=== PATIENT | female | born 1960 | race Caucasian/White ===

== ENCOUNTER 2021-07-25 17:07 | Observation (INO) | payer MEDICAID, SELFPAY ==
[2021-07-25 17:17] VITALS: BP 112/66; PULSE 53; RESP 17; O2SAT 95; BMI 36.8
[2021-07-25 20:00] VITALS: BP 141/75; PULSE 60; PULSE 61; RESP 20; TEMP 36.9; O2SAT 95
--- NOTE | 2021-07-25 20:40 | HMH.HP ---
*Admission Date: 07/25/21 *Chief complaint: chest pain *History of present illness: this patient presented to [facility] and had angina and abn card enz and transferred to [facility] for card eval and treatment [facility] History I have reviewed the patient's past medical history: Yes Medical History: Reports:: Hypertension Denies:: Diabetes Mellitus Type 1, Diabetes Mellitus Type 2 *Have you ever received a pneumonia vaccine?: Yes *Have you received a flu vaccine this season?: No Other Medical History: Reports: Arthritis, Fibromyalgia Laterality Cases: Bilateral: Breast Biopsy - *Social History Smoking Status: Former smoker Alcohol Intake: current Alcohol Intake Frequency:: holidays/special occasions only *Occupational Status:: disabled Housing: house Household Members: significant other *Travel in the last 8 weeks: Outside the [facility] Family Hx:: Coronary Artery Disease Review of Systems - Review of Systems Review of systems:: pertinent systems reviewed and negative unless documented below - Constitutional Denies fever(s) - Eyes Denies loss of vision - ENT Denies dizziness - *Cardiovascular Reports chest pain at rest, Reports shortness of breath, Reports radiating jaw, neck or arm pain - *Respiratory Denies cough - *Gastrointestinal Denies abdominal pain - *Musculoskeletal Denies joint pain - Integumentary/Breasts Denies rash - *Neurologic Denies seizure-like activity - Psychiatric Denies anxiety Meds Home Medications Medication Instructions Recorded Confirmed Type Baclofen [Lioresal 10mg tablet] 10 mg PO BID 07/25/21 07/25/21 History Duloxetine HCl 60 mg PO DAILY 07/25/21 07/25/21 History OXcarbazepine [Oxcarbazepine] 600 mg PO TID 07/25/21 07/25/21 History Topiramate [Topamax] 50 mg PO BID 07/25/21 07/25/21 History LORazepam [Ativan 1mg tablet] 1 mg PO TID PRN 07/26/21 07/26/21 History Allergies Allergy/AdvReac Type Severity Reaction Status Date / Time bee venom protein (honey bee) Allergy Verified 07/25/21 17:27 Penicillins Allergy Verified 07/25/21 17:27 Exam Vital signs and Labs for Last 24 Hours: Temp Pulse Resp BP Pulse Ox 98.4 F 61 20 141/75 H 95 07/25/21 20:00 07/25/21 20:00 07/25/21 20:00 07/25/21 20:00 07/25/21 20:00 I & O for Last 24 hours: Intake & Output 07/23/21 07/24/21 07/25/21 07/26/21 11:59 11:59 11:59 11:59 Intake Total 240 / 240 Balance 240 / 240 Weight 242 lb 7 oz - Constitutional no acute distress, obese - *Routine HEENT Exam Head: Present: normocephalic Eye: Present: EOMI, PERRL ENT: Present: mucous membranes dry - *Routine Neck Exam Absent: JVD - *Routine Respiratory Exam Present: decreased breath sounds - *Routine Cardiovascular Exam Present: RRR, murmur, S4 - *Routine Abdominal Exam Present: soft - *Routine Rectal Exam Rectal:: deferred - *Routine Genitalia Exam Genitalia:: deferred - *Routine Extremities Exam Absent: calf tenderness - *Routine Skin Exam Present: intact - *Routine Neurological Exam Present: alert, CN II-XII intact - Routine Psychiatric Exam Present: cooperative Assessment and Plan (1) Obesity (BMI 30-39.9) Status: Acute Category: Medical Code(s): E66.9 - Obesity, unspecified (2) NSTEMI (non-ST elevated myocardial infarction) Status: Acute Category: Medical Code(s): I21.4 - Non-ST elevation (NSTEMI) myocardial infarction (3) Unstable angina Status: Acute Category: Medical Code(s): I20.0 - Unstable angina (4) HTN (hypertension) Status: Acute Category: Medical Code(s): I10 - Essential (primary) hypertension
--- NOTE | 2021-07-25 20:41 | XR_ITS ---
PROCEDURE INFORMATION: Exam: XR Chest Exam date and time: 07/25/2021 9:02 PM Age: 60 years old Clinical indication: Sternal or substernal pain; Additional info: Chest pain TECHNIQUE: Imaging protocol: XR of the chest. Views: 1 view. COMPARISON: No relevant prior studies available. FINDINGS: Lungs: Unremarkable. No consolidation. Pleural spaces: Unremarkable. No pleural effusion. No pneumothorax. Heart/Mediastinum: Unremarkable. No cardiomegaly. Bones/joints: Unremarkable. IMPRESSION: No acute cardiopulmonary abnormality.
[2021-07-25 21:44] LABS: Chloride 109 mmol/L (98-107); Potassium 3.7 mmoL/L (3.5-5.1); Sodium 140 mmol/L (136-145)
[2021-07-25 21:47] LABS: Alanine Aminotransferase 23 U/L (12-78); Albumin Level 4.1 g/dl (3.5-5.0); Albumin/Globulin Ratio 1.4 (1.1-1.8); Alkaline Phosphatase 109 U/L (38-126); Anion Gap 9.7 mEq/L (5-15); Aspartate Amino Transferase 34 U/L (14-36); Bilirubin,Total 0.3 mg/dl (0.2-1.3); Blood Urea Nitrogen 16 mg/dl (7-17); Calcium 9.3 mg/dl (8.4-10.2); Carbon Dioxide 25 mmol/L (22.0-30.0); Cholesterol 225 mg/dl (140-200); Creatinine Clearance Estimated 152 mL/min (50-200); Estimated Glomerular Filt Rate 86 ml/min (>60); GFR (African American) 104 ML/MIN (>60); Glucose 113 mg/dl (74-100); Total Protein,Serum 7.1 g/dl (6.3-8.2); Triglycerides 115 mg/dl (30-150); VLDL Cholesterol 23 mg/dL (0-40)
[2021-07-25 21:48] LABS: Chol/HDL Ratio 3.5 (1-3.5); HDL Cholesterol 65 mg/dl (40-60)
[2021-07-25 21:59] LABS: Direct LDL Cholesterol 99.33 mg/dL (100-129)
[2021-07-25 22:12] LABS: Basophils # 0.1 K/mm3 (0-0.2); Basophils % 1.4 % (0.1-2.0); Eosinophils # 0.1 K/mm3 (0.0-0.4); Eosinophils % 1.3 % (0.1-12.0); Hematocrit 38.2 % (37.0-47.0); Hemoglobin 13.2 g/dL (12.2-16.2); Lymphocytes # 2.8 K/mm3 (0.7-4.5); Lymphocytes % 38.4 % (10-50); Mean Corpuscular HGB Conc 34.5 g/dL (31.8-35.4); Mean Corpuscular Hemoglobin 31.4 pg (27.0-31.2); Mean Corpuscular Volume 91.2 fl (81-99); Mean Platelet Volume 7.9 fl (7.4-10.4); Monocytes # 0.4 K/mm3 (0.1-1.0); Monocytes % 5.3 % (1.7-9.3); Neutrophils # 3.8 K/mm3 (1.8-7.8); Neutrophils % 53.5 % (37.0-80.0); Platelet Count 283 K/mm3 (142-424); Red Blood Count 4.19 M/mm3 (4.20-5.40); Red Cell Distribution Width 13.3 % (11.5-17.5); White Blood Count 7.2 K/mm3 (4.8-10.8)
[2021-07-26] VITALS (21 sets, daily range): BP systolic 95–148; BP diastolic 42–83; PULSE 51–77; RESP 16–20; TEMP 36.6–36.9; O2SAT 94–98; BMI 36.6
--- NOTE | 2021-07-26 | IR_ITS ---
APPROVED REPORT Patient Location: Inpatient Diabetes Trainer: ADRIAN Hazel RT (R) PROCEDURES Left heart catheterization Left ventriculogram Selective coronary angiogram Drug-eluting stent deployment to the ostial left main artery Intravascular ultrasound left main artery INDICATION Acute non-ST elevation myocardial infarction, Coronary artery disease Informed consent was obtained prior to the procedure. COMPLICATIONS None Estimated Blood Loss: Less than 10 mls TECHNIQUE One percent lidocaine used to anesthetize the right anterior aspect of the wrist. The right radial artery was accessed via the Seldinger technique. A 6 K[place] sheath was placed in the right radial artery. 2.5 mg of verapamil, 800 mcg of nitroglycerin, 1mg Lidocaine and 5000 U Heparin were given through the arterial sheath. The papa catheter was also used to perform left heart catheterization, left ventriculogram and selective coronary angiogram. At the end the diagnostic procedure therapeutic heparin. Following the heparin I broke scrub and then spoke to the patient's daughter and son about the options of bypass surgery versus stenting. I discussed with them the patient's low syntax score as well as the syntax trial data. After lengthy discussion it was decided the patient would most likely prefer stenting. Patient had already been loaded with Brilinta which would further delay bypass surgery by another 5 days. I did inform the family I felt this is a low risk procedure in my hands and felt that a successful outcome could be achieved. The daughter felt that her mother would like to proceed with stents therefore it was decided to percutaneous revascularize patient. The ACT was out of range. Patient was already loaded on 180 mg of Brilinta last evening. The guide catheter was placed in the left coronary cusp and the Choice PT extra-support wire was placed in the circumflex artery followed by a 4 mm x 8 mm resolute [place] stent deployed at 24 leon reducing the critical stenosis to 0%. Following this intravascular ultrasound probe was advanced and the vessel was interrogated. There was excellent stent expansion and sizing of the stent with excellent IVUS results. At the end of procedure the apparatus was removed the sheath was removed and hemostasis achieved and TR banding patient was transferred to the postop putting in stable condition. RAMON-3 flow was present before and after the procedure. ANGIOGRAPHIC RESULTS The left main artery Has an ostial 90% stenosis The left anterior descending artery Normal The circumflex artery Normal The right coronary artery Dominant normal The MARRERO ventriculogram reveals Ejection fraction 50% with hypokinetic anterior wall The left ventricular end-diastolic pressure 35 mmHg IMPRESSION Critical ostial left main artery disease Successful stent to the ostial left main artery critical disease reduced to 0% with 1 drug-eluting stent Regional wall motion abnormality with elevated LVEDP PLAN 1. Dual antiplatelet therapy 2. Beta-blockers ALYX inhibitor's 3. I believe patient's LVEDP will decrease now that the left main artery has been revascularized. The elevated LVEDP most likely stems from diastolic dysfunction secondary to ischemia as well as the regional wall motion abnormality 4. LDL less than 55 to be achieved with high intensity statin 5. Avoidance of tobacco products 6. Cardiac rehabilitation 7. Risk factor modification Electronically signed by : Dhaval Taveras MD 07/26/2021 13:05:22
--- NOTE | 2021-07-26 07:10 | HMH.PHAVTE ---
[facility] Pharmacy VTE Monitoring - Patient Demographics Admission date: 07/25/21 Report Date: 07/26/21 Time: 07:10 Allergies/Adverse Reactions: Patient Allergies bee venom protein (honey bee) Allergy (Verified 07/25/21 17:27) Penicillins Allergy (Verified 07/25/21 17:27) Height: 1.73 m Weight: 109.452 kg - VTE Risk Labs: VTE Related Lab Results Hgb 13.2 g/dL (12.2-16.2) 07/25/21 21:10 Hct 38.2 % (37.0-47.0) 07/25/21 21:10 Plt Count 283 K/mm3 (142-424) 07/25/21 21:10 BUN 16 mg/dl (7-17) 07/25/21 21:10 Creatinine 0.70 mg/dl (0.52-1.04) 07/25/21 21:10 Estimated Creat Clear 152 mL/min (50-200) 07/25/21 21:10 Was VTE Risk Assessment Performed: Yes VTE Score: 7 VTE Risk Level: Moderate Risk - Prophylaxis VTE Prophylaxis Ordered?: Yes Types of VTE Prophylaxis: TEDS Knee High Location of Applied Device: Bilateral Lower Extremeties
--- NOTE | 2021-07-26 08:00 | CA_ITS ---
APPROVED REPORT EXAM: Comprehensive 2D, Doppler, and color-flow Echocardiogram Sql Server Consultant: HUEY Zapata, RVS Ht: 5 ft 8 in Wt: 242lbs BSA: 2.22 BP: 130/90 mmHg Indications: NSTEMI, HTN 2D Dimensions LA Volume 58.40 mL LA Volume Index 26.30 mL/m2 (M/F) 16-34 M-Mode Dimensions TAPSE 2.29 (<1.7) LV Diastology E Decel Time 290.00 (160-240 msec) E/A Ratio 0.94 MED E' 7.70 (< 7 cm/sec) MED A' 9.70 cm/s E'/MED E' Ratio 10.48 (>14) LAT E' 9.40 (<10 cm/sec) LAT A' 8.30 cm/s E/LAT E' Ratio 8.59 (>14) Pulm Vein s 32.00 cm/sec Pulm Vein d 22.00 cm/sec Ar-A Duration 133.00 msec Aortic Valve LVOT Max 133.00 (70-110 cm/s) LVOT VTI 32.12 cm AoV Peak Alok. 169.00 (50-130 cm/s) AO Peak GR. 11.40 mmHg AO Mean GR. 5.70 (<5 mmHg) AO VTI 40.00 (18-25 cm) Mitral Valve MV A Velocity 85.00 (40-130 cm/s) E/A Ratio 0.94 MV Decel. Time 290.00 (160-240 ms) MV Mean Gr. 1.50 (<2mmHg) MV PHT 73.00 ms Tricuspid Valve TR P. Velocity 184.00 cm/s RAP Estimate 10.00 mmHg RVSP 23.50 mmHg Left Ventricle Left atrium is mildly enlarged, left ventricle is normal size, mild concentric left ventricular hypertrophy, estimated ejection fraction is 50%, there is moderate hypokinesis involving the distal septum and apical wall. Grade 1 diastolic dysfunction seen without tissue Doppler evidence of raise left atrial pressure. Right Ventricle Right atrium and right ventricle are normal size and contractility. Aortic Valve Aortic valve is minimally thickened and fibrosed, there is no aortic stenosis or aortic insufficiency. Mitral Valve Mitral valve has mitral annular calcification there is no mitral stenosis, there is trace mitral regurgitation. Tricuspid Valve Tricuspid valve is grossly normal, there is trace tricuspid regurgitation, tricuspid regurgitation jet velocity is inadequate for calculation of the right ventricular systolic pressure. Pulmonic Valve Pulmonic valve is poorly visualized. Great Vessels Aortic root is normal size. Inferior vena cava is poorly visualized. Pericardium No significant pericardial effusion noted. Conclusion 1. Mildly enlarged left atrium, normal left ventricular size, mild concentric left ventricular hypertrophy, estimated ejection fraction 50% with segmental wall motion abnormality described above, grade 1 diastolic dysfunction seen without tissue Doppler evidence of raise left atrial pressure. 2. Trace mitral and tricuspid regurgitation. 3. No significant pericardial effusion noted. 4. Inferior vena cava is poorly visualized Electronically signed by : Geoff Miller MD 07/27/2021 11:53:42
--- NOTE | 2021-07-26 08:30 | HMH.CNCARD ---
History of Present Illness Consult date: 07/26/21 Requesting physician: Marito Mccoy Consult reason: chest pain Chief complaint: chest pain Additional Medical History:: Fibromyalgia trigeminal neuralgia anxiety htn lupus former 1 ppd smoker, quit 8 months ago History of present illness: 60 year old female with past medical hx of fibromyalgia, tigeminal neuralgia, anxiety, htn, and lupus presented to [facility] ED yesterday with complaint of midsternal chest pressure associated with soa. patient reports she recently moved to from [place]. reports has had intermittent chest pressure x 6 weeks, becoming more freq and lasting longer, often present at rest. reports pain often awakes her at night. yesterday was going to [employer] with pain started and couldnt get out of car. went to ed. High sensitivity trops were elevated, EKG negative for stemi. chest xray and ct chest negative. patient was transferred to this facility for cardiology consult. [facility] History Medical History: Reports:: Hypertension Denies:: Diabetes Mellitus Type 1, Diabetes Mellitus Type 2 *Have you ever received a pneumonia vaccine?: Yes *Have you received a flu vaccine this season?: No Other Medical History: Reports: Arthritis, Fibromyalgia Laterality Cases: Bilateral: Breast Biopsy - *Social History Smoking Status: Former smoker Alcohol Intake: current Alcohol Intake Frequency:: holidays/special occasions only *Occupational Status:: disabled Housing: house Household Members: significant other *Travel in the last 8 weeks: Outside the [facility] Family Hx:: No significant family history Meds Home Medications Medication Instructions Recorded Confirmed Type Baclofen [Lioresal 10mg tablet] 10 mg PO BID 07/25/21 07/25/21 History Duloxetine HCl 60 mg PO DAILY 07/25/21 07/25/21 History OXcarbazepine [Oxcarbazepine] 600 mg PO TID 07/25/21 07/25/21 History Topiramate [Topamax] 50 mg PO BID 07/25/21 07/25/21 History LORazepam [Ativan 1mg tablet] 1 mg PO TID PRN 07/26/21 07/26/21 History Allergies Allergy/AdvReac Type Severity Reaction Status Date / Time bee venom protein (honey bee) Allergy Verified 07/25/21 17:27 Penicillins Allergy Verified 07/25/21 17:27 Exam Vital signs and Labs for Last 24 Hours: Temp Pulse Resp BP Pulse Ox 98.0 F 57 L 20 139/67 98 07/26/21 04:00 07/26/21 04:00 07/26/21 04:00 07/26/21 04:00 07/26/21 04:00 Laboratory Results - last 24 hr 07/25/21 21:10: WBC 7.2, RBC 4.19 L, Hgb 13.2, Hct 38.2, MCV 91.2, MCH 31.4 H, MCHC 34.5, RDW 13.3, Plt Count 283, MPV 7.9, Neut % (Auto) 53.5, Lymph % (Auto) 38.4, [place] % (Auto) 5.3, Eos % (Auto) 1.3, Baso % (Auto) 1.4, Neut # (Auto) 3.8, Lymph # (Auto) 2.8, [place] # (Auto) 0.4, Eos # (Auto) 0.1, Baso # (Auto) 0.1 07/25/21 21:10: Sodium 140, Potassium 3.7, Chloride 109 H, Carbon Dioxide 25, Anion Gap 9.7, BUN 16, Creatinine 0.70, Estimated Creat Clear 152, Estimated GFR 86, Est GFR ( Amer) 104, Glucose 113 H, Calcium 9.3, Magnesium 2.0, Total Bilirubin 0.3, AST 34, ALT 23, Alkaline Phosphatase 109, Total Protein 7.1, Albumin 4.1, Globulin 3.0, Albumin/Globulin Ratio 1.4, Triglycerides 115, Cholesterol 225 H, LDL Cholesterol Direct 99.33 L, VLDL Cholesterol 23, HDL Cholesterol 65 H, Cholesterol/HDL Ratio 3.5 I & O for Last 24 hours: Intake & Output 07/23/21 07/24/21 07/25/21 07/26/21 23:59 23:59 23:59 23:59 Intake Total 240 / 240 906 / 906 Balance 240 / 240 906 / 906 Weight 242 lb 7 oz 241 lb 4.8 oz Microbiology Reports for the Last 24 Hours: Microbiology 07/25/21 17:55 Nasopharyngeal Coronavirus COVID-19 PCR - Final - Constitutional no acute distress - *Routine Respiratory Exam Present: CTA bilaterally - *Routine Cardiovascular Exam Present: RRR - *Routine Extremities Exam Absent: cyanosis, clubbing, edema Review of Systems - *Cardiovascular Reports chest pain, Reports shortness of breath Assessment a
--- NOTE | 2021-07-26 09:39 | HMH.PHAINT ---
MEDICATION RECONCILIATION COMPLETED ON PATIENT USING LIST PROVIDED BY SPOUSE AND PATIENT INTERVIEW. PATIENT JUST MOVED TO [place] FROM [place]. -CARIDAD GRANADOD
--- NOTE | 2021-07-26 11:19 | PC.NURSE ---
VERIFIED W/FANY IN [employer] THAT IT IS OK TO GO AHEAD AND GIVE BENEDRYL, HE SAID YES, IT WAS OK AND THEY WOULD BE UP TO GET PATIENT SHORTLY
--- NOTE | 2021-07-26 11:25 | PC.NURSE ---
[facility] HERE TO TRANSPORT PATIENT TO [facility]
[2021-07-26 13:08] LABS: CATHL Activated Clotting Time > 400 SEC (74-125)
--- NOTE | 2021-07-26 13:16 | PC.NURSE ---
spoke with rhoda hoffman aprn about note stating she wanted patient to have valsartan 80mg po daily verified with her that this was something she wanted ordered. she stated she did want this given to patient so order sent to pharmacy. valsartan is not a form we have so irbesartan was used. (this was at 1111)
--- NOTE | 2021-07-26 13:40 | PC.NURSE ---
Pt just arrived back to the floor from [employer]
--- NOTE | 2021-07-26 15:55 | P.PN_ITS ---
Internal Medicine - PN: Subj *Date: 07/26/21 *Time: 08:55 Interval history: 60-year-old female patient sitting up in bed resting quietly she denies any chest pain or shortness of breath during the night. Daughter and boyfriend are at bedside. Patient to go down for left heart cath today she denies any questions regarding procedure. Exam Vital signs and Labs for Last 24 Hours: Temp Pulse Resp BP Pulse Ox 97.8 F 56 L 18 115/64 97 07/26/21 08:00 07/26/21 15:45 07/26/21 15:45 07/26/21 15:45 07/26/21 15:45 Laboratory Results - last 24 hr 07/25/21 21:10: WBC 7.2, RBC 4.19 L, Hgb 13.2, Hct 38.2, MCV 91.2, MCH 31.4 H, MCHC 34.5, RDW 13.3, Plt Count 283, MPV 7.9, Neut % (Auto) 53.5, Lymph % (Auto) 38.4, [place] % (Auto) 5.3, Eos % (Auto) 1.3, Baso % (Auto) 1.4, Neut # (Auto) 3.8, Lymph # (Auto) 2.8, [place] # (Auto) 0.4, Eos # (Auto) 0.1, Baso # (Auto) 0.1 07/25/21 21:10: Sodium 140, Potassium 3.7, Chloride 109 H, Carbon Dioxide 25, Anion Gap 9.7, BUN 16, Creatinine 0.70, Estimated Creat Clear 152, Estimated GFR 86, Est GFR ( Amer) 104, Glucose 113 H, Calcium 9.3, Magnesium 2.0, Total Bilirubin 0.3, AST 34, ALT 23, Alkaline Phosphatase 109, Total Protein 7.1, Albumin 4.1, Globulin 3.0, Albumin/Globulin Ratio 1.4, Triglycerides 115, Cholesterol 225 H, LDL Cholesterol Direct 99.33 L, VLDL Cholesterol 23, HDL Cholesterol 65 H, Cholesterol/HDL Ratio 3.5 07/26/21 12:31: Activated Clotting Time > 400 H* I & O for Last 24 hours: Intake & Output 07/23/21 07/24/21 07/25/21 07/26/21 23:59 23:59 23:59 23:59 Intake Total 240 / 240 906 / 906 Balance 240 / 240 906 / 906 Weight 242 lb 7 oz 241 lb 4.8 oz Microbiology Reports for the Last 24 Hours: Microbiology 07/25/21 17:55 Nasopharyngeal Coronavirus COVID-19 PCR - Final - Constitutional no acute distress - *Routine HEENT Exam Head: Present: normocephalic Eye: Present: EOMI ENT: Present: mucous membranes moist - *Routine Neck Exam Present: trachea midline. Absent: tracheal deviation - *Routine Respiratory Exam Present: CTA bilaterally. Absent: accessory muscle use - *Routine Cardiovascular Exam Present: RRR - *Routine Abdominal Exam Present: soft, normoactive bowel sounds. Absent: tenderness, firm - *Routine Extremities Exam Present: full ROM, pulses intact. Absent: cyanosis, clubbing, edema - *Routine Skin Exam Present: intact, cyanosis, dry, warm. Absent: erythema - *Routine Neurological Exam Present: alert, oriented X3. Absent: motor deficit - Routine Psychiatric Exam Present: normal affect, normal thought process. Absent: auditory hallucinations Assessment and Plan (1) Obesity (BMI 30-39.9) Status: Acute Category: Medical Code(s): E66.9 - Obesity, unspecified (2) NSTEMI (non-ST elevated myocardial infarction) Status: Acute Category: Medical Code(s): I21.4 - Non-ST elevation (NSTEMI) myocardial infarction (3) Unstable angina Status: Acute Category: Medical Code(s): I20.0 - Unstable angina (4) HTN (hypertension) Status: Acute Category: Medical Code(s): I10 - Essential (primary) hypertension - Assessment and plan all Dx Assessment and Plan for all problems:: Rounded with Dr. Berger, all orders for Dr. Berger: 1. To have left heart cath today
--- NOTE | 2021-07-26 18:43 | PC.NURSE ---
Tracelet removed as follows: 1515 - 2mls removed 1530 - 2mls removed 1545 - 2mls removed 1600 - 2mls removed 1615 - 2mls removed, site started to bleed. 2mls put back in, bleeding stopped 1700 - 2mls removed 1715 - 2mls removed 1730 - 2mls removed 1745 - 2mls removed 1805 - radialband removed, telfa and tegaderm in place 1840 - small amount of drainage noticed and outlined on bandage Pt is s/p heart cath with 1 stent placed. Tracelet has been removed, telfa and tegaderm in place. Small amount of sanguineous drainage noted. It is outlined and pt reminded to not use her right hand and not to bed her wrist. No hematoma noted. She's denied any complaints. Family is currently at bedside.
[2021-07-27] VITALS: BP 120/63; PULSE 62; PULSE 68; RESP 20; TEMP 36.7; O2SAT 98
[2021-07-27 04:00] VITALS: BP 121/64; PULSE 70; PULSE 71; RESP 21; TEMP 36.9; O2SAT 99
--- NOTE | 2021-07-27 04:30 | PC.NURSE ---
Patient is alert and oriented x4. Has rested well this shift with no c/o pain or discomfort. Call light in place and working appropriately.
[2021-07-27 05:00] VITALS: BMI 37.7
[2021-07-27 06:42] LABS: Basophils % 0.6 % (0.1-2.0); Eosinophils # 0.1 K/mm3 (0.0-0.4); Eosinophils % 1.4 % (0.1-12.0); Hematocrit 35.1 % (37.0-47.0); Hemoglobin 11.9 g/dL (12.2-16.2); Lymphocytes # 2.3 K/mm3 (0.7-4.5); Lymphocytes % 41.5 % (10-50); Mean Corpuscular HGB Conc 34.1 g/dL (31.8-35.4); Mean Corpuscular Hemoglobin 31.8 pg (27.0-31.2); Mean Corpuscular Volume 93.4 fl (81-99); Mean Platelet Volume 7.5 fl (7.4-10.4); Monocytes # 0.3 K/mm3 (0.1-1.0); Monocytes % 4.6 % (1.7-9.3); Neutrophils # 2.9 K/mm3 (1.8-7.8); Neutrophils % 51.9 % (37.0-80.0); Platelet Count 249 K/mm3 (142-424); Red Blood Count 3.75 M/mm3 (4.20-5.40); Red Cell Distribution Width 13.4 % (11.5-17.5); White Blood Count 5.5 K/mm3 (4.8-10.8)
[2021-07-27 06:50] LABS: Chloride 110 mmol/L (98-107); Potassium 3.5 mmoL/L (3.5-5.1); Sodium 140 mmol/L (136-145)
[2021-07-27 06:53] LABS: Blood Urea Nitrogen 14 mg/dl (7-17); Creatinine Clearance Estimated 182 mL/min (50-200); Estimated Glomerular Filt Rate 103 ml/min (>60); GFR (African American) 124 ML/MIN (>60)
[2021-07-27 06:54] LABS: Anion Gap 6.5 mEq/L (5-15); Calcium 8.5 mg/dl (8.4-10.2); Carbon Dioxide 27 mmol/L (22.0-30.0); Glucose 100 mg/dl (74-100)
[2021-07-27 08:00] VITALS: BP 158/78; PULSE 62; PULSE 70; RESP 16; TEMP 36.8; O2SAT 98
[2021-07-27 11:12] VITALS: BMI 37.7
[2021-07-27 12:00] VITALS: BP 155/76; PULSE 73; PULSE 80; RESP 16; TEMP 36.8; O2SAT 98
--- NOTE | 2021-07-27 13:17 | HMH.DCSUM ---
General - General Admission date:: 07/25/21 Discharge date: 07/27/21 HPI HPI: this patient presented to [facility] and had angina and abn card enz and transferred to [facility] for card eval and treatment Hospital Course Hospital Course: The patient was admitted to our service, seen in consultation per cardiology. Abnormal troponins with classic clinical features of angina prompted a trip to the [employer]. A stent was deployed in the proximal left main. Cath report is below ANGIOGRAPHIC RESULTS The left main artery Has an ostial 90% stenosis The left anterior descending artery Normal The circumflex artery Normal The right coronary artery Dominant normal The MARRERO ventriculogram reveals Ejection fraction 50% with hypokinetic anterior wall The left ventricular end-diastolic pressure 35 mmHg IMPRESSION Critical ostial left main artery disease Successful stent to the ostial left main artery critical disease reduced to 0% with 1 drug-eluting stent Regional wall motion abnormality with elevated LVEDP PLAN 1. Dual antiplatelet therapy 2. Beta-blockers ALYX inhibitor's 3. I believe patient's LVEDP will decrease now that the left main artery has been revascularized. The elevated LVEDP most likely stems from diastolic dysfunction secondary to ischemia as well as the regional wall motion abnormality 4. LDL less than 55 to be achieved with high intensity statin 5. Avoidance of tobacco products 6. Cardiac rehabilitation 7. Risk factor modification The patient tolerated the procedure well, had no subsequent chest pain or dyspnea and looked great on the morning of her discharge. We discussed with her the anatomy of her coronaries, the location of stent deployment, and the importance of maintaining patency. Patient moved here recently from [facility]. She has no primary physician in the area, and plans to establish with us. Objective Vital signs: Temp Pulse Resp BP Pulse Ox 98.3 F 62 16 158/78 H 98 07/27/21 08:00 07/27/21 08:00 07/27/21 08:00 07/27/21 08:00 07/27/21 08:00 no acute distress - *Routine HEENT Exam Head: Present: normocephalic Eye: Present: EOMI, PERRL ENT: Present: mucous membranes moist - *Routine Neck Exam Present: supple - *Routine Respiratory Exam Present: CTA bilaterally - *Routine Cardiovascular Exam Present: RRR - *Routine Abdominal Exam Present: soft, normoactive bowel sounds. Absent: tenderness - *Routine Extremities Exam Absent: cyanosis, clubbing, edema - *Routine Skin Exam Present: warm. Absent: rash Results Labs on day of discharge: Labs from last 24 hours 07/27/21 07/27/21 06:10 06:10 WBC 5.5 RBC 3.75 L Hgb 11.9 L Hct 35.1 L MCV 93.4 MCH 31.8 H MCHC 34.1 RDW 13.4 Plt Count 249 MPV 7.5 Neut % (Auto) 51.9 Lymph % (Auto) 41.5 [place] % (Auto) 4.6 Eos % (Auto) 1.4 Baso % (Auto) 0.6 Neut # (Auto) 2.9 Lymph # (Auto) 2.3 [place] # (Auto) 0.3 Eos # (Auto) 0.1 Baso # (Auto) 0.0 Sodium 140 Potassium 3.5 Chloride 110 H Carbon Dioxide 27 Anion Gap 6.5 BUN 14 Creatinine 0.60 Estimated Creat Clear 182 Estimated GFR 103 Est GFR ( Amer) 124 Glucose 100 Calcium 8.5 DS: Diagnosis - Discharge Diagnosis (1) Obesity (BMI 30-39.9) Status: Acute (2) NSTEMI (non-ST elevated myocardial infarction) Status: Acute (3) Unstable angina Status: Acute (4) HTN (hypertension) Status: Acute (5) Coronary artery disease Status: Acute Discharge Plan - Patient Discharge Instructions ACTIVITY: Limited activity DIET: continue same diet Patient Instructions: DI for Angina, DI for Cardiac Catheterization, DI for Surgical Site Infection - Follow up Plan Follow up with: Dhaval Taveras MD [Staff Physician] - 1 week Marlo Berger MD [Staff Physician] - 1 week Disposition: Home, Self-Care Condition at discharge:: Improved Home Medications:
--- NOTE | 2021-07-27 14:21 | HMH.PHACLD ---
Olamide Osman has received discharge medication counseling on the following medications: PATIENT STARTED ON LIPITOR, BRILINTA, ASPIRIN, AND LISINOPRIL. NOT STARTING BETA YANI AT THIS TIME DUE TO HR.
--- NOTE | 2021-07-30 14:22 | CARE MANAGER ---
Contacted patient related discharge from hospital recently. Patient was able to roller picker all her medications ordered and is aware of the follow up appointments on the . She states she still has some pain and tingling in her elbow. If this progresses she will let MD know. Denies any other questions or concerns at t his time. PERRI Virgen
== END 2021-07-27 14:55 | disposition home or self-care (01) ==
PROVIDERS: Internal Medicine; Admitting Provider Emergency Medicine; PCP Emergency Medicine; Visit Provider Emergency Medicine
DX: I21.4 Non-ST elevation (NSTEMI) myocardial infarction (principal); I25.110 Atherosclerotic heart disease of native coronary artery with unstable angina pectoris; I10 Essential (primary) hypertension; F17.210 Nicotine dependence, cigarettes, uncomplicated; Z20.822 Contact with and (suspected) exposure to COVID-19
CPT/HCPCS: 36415; 71045; 80048; 80053; 80061; 83735; 85025; 85347; 92928; 92978; 93306; 93458; 99152; 99153; C1725; C1769; C1876; C9600; C9803; G0378; J1644; Q9967; U0003; U0005

== ENCOUNTER → 2021-08-03 07:49 | Outpatient (CLI) | payer MEDICAID, SELFPAY ==
[2021-08-03 08:04] LABS: Hematocrit 39.3 % (37.0-47.0); Hemoglobin 13.3 g/dL (12.2-16.2)
[2021-08-03 08:17] LABS: Blood Urea Nitrogen 18 mg/dl (7-17); Estimated Glomerular Filt Rate 103 ml/min (>60); GFR (African American) 124 ML/MIN (>60)
== END ==
PROVIDERS: PCP Emergency Medicine; Visit Provider Internal Medicine
DX: Z20.822 Contact with and (suspected) exposure to COVID-19 (principal)
CPT/HCPCS: 36415; 82565; 84520; 85014; 85018

== ENCOUNTER 2021-08-07 13:50 | Outpatient (RCR) | payer MEDICARE, MEDICAID, SELFPAY | END 2021-11-30 15:00 | disposition home or self-care (01) | LOC: PT 13:50 | PROVIDERS: Visit Provider Internal Medicine | DX: I25.10 Atherosclerotic heart disease of native coronary artery without angina pectoris (principal); Z95.5 Presence of coronary angioplasty implant and graft | CPT/HCPCS: 93798 ==

== ENCOUNTER → 2021-09-05 11:00 | Outpatient (CLI) | payer MEDICAID, SELFPAY | PROVIDERS: PCP Emergency Medicine; Visit Provider Internal Medicine Cardiovascular Disease | DX: G47.30 Sleep apnea, unspecified (principal); R06.83 Snoring | CPT/HCPCS: 95806 ==

== ENCOUNTER → 2021-09-20 09:47 | Outpatient (CLI) | payer MEDICARE, SELFPAY ==
[2021-09-20 10:57] LABS: Anion Gap 9.5 mEq/L (5-15); Blood Urea Nitrogen 18 mg/dl (7-17); Calcium 9.2 mg/dl (8.4-10.2); Carbon Dioxide 27 mmol/L (22.0-30.0); Chloride 107 mmol/L (98-107); Estimated Glomerular Filt Rate 103 ml/min (>60); GFR (African American) 124 ML/MIN (>60); Glucose 113 mg/dl (74-100); Potassium 4.5 mmoL/L (3.5-5.1); Sodium 139 mmol/L (136-145)
[2021-09-20 11:06] LABS: NT Pro Brain Natriuretic Pep. 147 pg/mL (0-125)
[2021-09-20 11:13] LABS: Troponin I < 0.01 ng/ml (0.00-0.034)
== END ==
PROVIDERS: PCP Emergency Medicine; Visit Provider Physician Assistant
DX: E78.5 Hyperlipidemia, unspecified (principal); I10 Essential (primary) hypertension; I25.110 Atherosclerotic heart disease of native coronary artery with unstable angina pectoris; R06.00 Dyspnea, unspecified; R42 Dizziness and giddiness; R53.83 Other fatigue; Z95.5 Presence of coronary angioplasty implant and graft
CPT/HCPCS: 36415; 80048; 83880; 84484

== ENCOUNTER → 2021-11-02 10:05 | Outpatient (CLI) | payer MEDICARE, SELFPAY ==
[2021-11-02 10:10] LABS: MANUAL DIFFERENTIAL MANUAL DIFFERENTIAL (MANUAL DIFF)
[2021-11-02 11:02] LABS: Basophils # 0.1 K/mm3 (0-0.2); Basophils % 0.7 % (0.1-2.0); Eosinophils # 0.1 K/mm3 (0.0-0.4); Eosinophils % 0.9 % (0.1-12.0); Hematocrit 38.5 % (37.0-47.0); Hemoglobin 12.4 g/dL (12.2-16.2); Lymphocytes # 1.6 K/mm3 (0.7-4.5); Lymphocytes % 24.4 % (10-50); Mean Corpuscular HGB Conc 32.1 g/dL (31.8-35.4); Mean Corpuscular Volume 96.6 fl (81-99); Mean Platelet Volume 7.9 fl (7.4-10.4); Monocytes # 0.4 K/mm3 (0.1-1.0); Monocytes % 5.8 % (1.7-9.3); Neutrophils # 4.5 K/mm3 (1.8-7.8); Neutrophils % 68.1 % (37.0-80.0); Platelet Count 372 K/mm3 (142-424); Red Blood Count 3.98 M/mm3 (4.20-5.40); White Blood Count 6.6 K/mm3 (4.8-10.8)
[2021-11-02 11:44] LABS: Blood Urea Nitrogen 17 mg/dl (7-17); Calcium 8.8 mg/dl (8.4-10.2); Carbon Dioxide 26 mmol/L (22.0-30.0); Chloride 102 mmol/L (98-107); Estimated Glomerular Filt Rate 103 ml/min (>60); GFR (African American) 124 ML/MIN (>60); Glucose 99 mg/dl (74-100); Sodium 140 mmol/L (136-145)
[2021-11-02 12:14] LABS: Eosinophils % 2 % (0-3); Lymphocytes % 20 % (10-50); Monocytes % 6 % (2-9); Neutrophils % 72 % (42-76); Platelet Estimate Normal; RBC Morphology Normal; Total Cells Counted 100
== END ==
PROVIDERS: PCP Emergency Medicine; Visit Provider Internal Medicine Cardiovascular Disease
DX: I20.0 Unstable angina; Z95.5 Presence of coronary angioplasty implant and graft; U07.1 COVID-19
CPT/HCPCS: 36415; 80048; 85007; 85014; 85018; 85048; 85049; C9803; U0003; U0005

== ENCOUNTER 2021-11-07 18:33 | Emergency (ER) | payer MEDICARE, MEDICAID, SELFPAY ==
--- NOTE | 2021-11-07 18:26 | ECG_ITS ---
APPROVED REPORT Exam: Resting ECG HR:72 bpm ECG Measurements Heart Rate 72 AXES NM 151 P 75 QRSd 101 QRS 65 QT 400 T 64 QTc 425 Conclusion SINUS RHYTHM LOW QRS VOLTAGE IN PRECORDIAL LEADS [QRS DEFLECTION < 1.0 mV IN CHEST LEADS] BORDERLINE ECG UNCONFIRMED REPORT Electronically signed by : Malick Santoyo MD 11/08/2021 13:49:26
[2021-11-07 18:33] VITALS: BP 127/76; PULSE 69; RESP 18; TEMP 36.8; O2SAT 94; BMI 35.2
[2021-11-07 18:36] VITALS: BMI 35.2
--- NOTE | 2021-11-07 18:37 | XR_ITS ---
PROCEDURE INFORMATION: Exam: XR Chest Exam date and time: 11/07/2021 6:41 PM Age: 60 years old Clinical indication: Pain; Angina pectoris; Prior surgery; Surgery date: 1-6 months; Surgery type: Heart stents; Additional info: Chest pain TECHNIQUE: Imaging protocol: Radiologic exam of the chest. Views: 2 views. COMPARISON: CR XR CHEST PORTABLE 07/25/2021 9:02 PM FINDINGS: Lungs: Unremarkable. No consolidation. Pleural spaces: Unremarkable. No pleural effusion. No pneumothorax. Heart/Mediastinum: Unremarkable. No cardiomegaly. Bones/joints: Unremarkable. Other findings: 0 lateral IMPRESSION: No acute findings.
--- NOTE | 2021-11-07 18:41 | HMH.EDCP ---
Discharge Plan Disposition Patient Disposition: Still a Patient Prescriptions Prescriptions: New isosorbide mononitrate 30 mg tablet extended release 24 hr 30 mg PO DAILY 30 Days Qty: 30 0RF No Action atorvastatin 80 mg tablet 80 mg PO HS Qty: 90 3RF spironolactone [Aldactone] 25 mg tablet 25 mg PO DAILY Qty: 90 3RF clopidogrel [Plavix] 75 mg tablet 75 mg PO DAILY Qty: 90 3RF Brilinta 90 mg tablet 90 mg PO BID ranolazine [Ranexa] 1,000 mg tablet extended release 12 hr 1,000 mg PO BID Qty: 60 5RF metoprolol succinate [Toprol XL] 25 mg tablet extended release 24 hr 25 mg PO DAILY Qty: 90 3RF ropinirole 1 mg tablet 1 mg PO DAILY Qty: 30 2RF oxcarbazepine 300 mg tablet 600 mg PO TID 30 Days Qty: 180 2RF topiramate 50 mg tablet See Rx Instructions .ROUTE .COMPLEX Qty: 60 0RF Dose Instruction: TAKE ONE TABLET BY MOUTH TWICE DAILY Rx Instructions: TAKE ONE TABLET BY MOUTH TWICE DAILY duloxetine 60 MG capsule,delayed release(DR/EC) 60 mg PO DAILY lorazepam 1 MG tablet 1 mg PO TIDP PRN (Reason: Anxiety) aspirin 81 MG tablet,delayed release (DR/EC) 81 mg PO DAILY Qty: 100 10RF irbesartan 75 MG tablet 75 mg PO DAILY Qty: 30 10RF Referrals Follow up/Referrals: Provider,Referral, [Referring] - See instructions Clinical Impressions Clinical Impression: Chest pain Discharge ED Provider: Viktor Auguste Chest Pain HPI General Chief Complaint: Chest Pain Stated Complaint: chest pain Time Seen by Provider: 11/07/21 18:41 History of Present Illness HPI narrative: 60-year-old female with history of coronary disease presents with chest pain substernal dull nonradiating. She says it has been constant and is associated with extreme weakness. She says she is due to have a stent placed next week when her insurance goes through. No fever no chills no abdominal pain diarrhea. Chest pain had been much worse but now is letting up a little bit. Related Data Home Medications Medication Instructions Recorded Confirmed duloxetine 60 mg capsule,delayed 60 mg PO DAILY FIBROMYALGIA 07/25/21 11/02/21 release lorazepam 1 mg tablet 1 mg PO TIDP PRN Anxiety 07/26/21 11/02/21 ticagrelor 90 mg tablet (Brilinta) 90 mg PO BID 09/25/21 11/02/21 Previous Rx's Medication Instructions Recorded aspirin 81 mg tablet,delayed 81 mg PO DAILY #100 tabs 07/27/21 release irbesartan 75 mg tablet 75 mg PO DAILY #30 tabs 07/27/21 atorvastatin 80 mg tablet 80 mg PO HS #90 tabs 08/03/21 metoprolol succinate 25 mg 25 mg PO DAILY #90 tabs 08/03/21 tablet,extended release 24 hr (Toprol XL) ropinirole 1 mg tablet 1 mg PO DAILY #30 tabs 08/03/21 spironolactone 25 mg tablet 25 mg PO DAILY #90 tabs 08/03/21 (Aldactone) clopidogrel 75 mg tablet (Plavix) 75 mg PO DAILY #90 tabs 09/20/21 ranolazine 1,000 mg 1,000 mg PO BID #60 tabs 09/25/21 tablet,extended release,12 hr (Ranexa) oxcarbazepine 300 mg tablet 600 mg PO TID 30 days #180 tabs 10/02/21 topiramate 50 mg tablet See Rx Instructions .Route 10/02/21 .COMPLEX #60 tabs isosorbide mononitrate 30 mg 30 mg PO DAILY 30 days #30 tabs 11/07/21 tablet,extended release 24 hr Allergies Allergy/AdvReac Type Severity Reaction Status Date / Time bee venom protein (honey bee) Allergy Verified 11/02/21 09:28 Penicillins Allergy Verified 11/02/21 09:28 [facility] PFS Surgical History H/O breast biopsy H/O tubal ligation History of cardiac cath Family History Other Cancer Coronary artery disease Social History Smoking Status: Former smoker alcohol intake: current substance use type: denies use current occupational status: disabled Travel in the last 8 weeks: None household members: other housing: house ROS Obtained:
[2021-11-07 18:47] LABS: Basophils # 0.1 K/mm3 (0-0.2); Basophils % 1.4 % (0.1-2.0); Eosinophils # 0.1 K/mm3 (0.0-0.4); Eosinophils % 1.8 % (0.1-12.0); Hematocrit 38.5 % (37.0-47.0); Hemoglobin 12.4 g/dL (12.2-16.2); Lymphocytes % 30.5 % (10-50); Mean Corpuscular HGB Conc 32.3 g/dL (31.8-35.4); Mean Corpuscular Hemoglobin 31.9 pg (27.0-31.2); Mean Corpuscular Volume 98.5 fl (81-99); Mean Platelet Volume 7.9 fl (7.4-10.4); Monocytes # 0.2 K/mm3 (0.1-1.0); Monocytes % 3.3 % (1.7-9.3); Neutrophils # 4.1 K/mm3 (1.8-7.8); Platelet Count 339 K/mm3 (142-424); Red Blood Count 3.91 M/mm3 (4.20-5.40); Red Cell Distribution Width 13.2 % (11.5-17.5); White Blood Count 6.5 K/mm3 (4.8-10.8)
[2021-11-07 18:48] LABS: Chloride 102 mmol/L (98-107); Potassium 3.8 mmoL/L (3.5-5.1); Sodium 138 mmol/L (136-145)
[2021-11-07 18:51] LABS: Anion Gap 15.8 mEq/L (5-15); Blood Urea Nitrogen 15 mg/dl (7-17); Calcium 8.5 mg/dl (8.4-10.2); Carbon Dioxide 24 mmol/L (22.0-30.0); Creatinine Clearance Estimated 170 mL/min (50-200); Estimated Glomerular Filt Rate 103 ml/min (>60); GFR (African American) 124 ML/MIN (>60); Glucose 184 mg/dl (74-100)
[2021-11-07 19:10] LABS: Troponin I < 0.01 ng/ml (0.00-0.034)
[2021-11-07 19:30] VITALS: BP 102/57; PULSE 64; O2SAT 97
[2021-11-07 20:00] VITALS: BP 108/60; PULSE 62; O2SAT 98
[2021-11-07 20:30] VITALS: BP 110/50; PULSE 59; O2SAT 99
--- NOTE | 2021-11-07 20:47 | PC.NURSE ---
Updated pt of POC and when her second trop could be drawn. Pt agreeable at this time. No other needs voiced. Call light within reach.
--- NOTE | 2021-11-07 21:16 | PC.NURSE ---
Second trop sent to LAB. Pt voiced no needs at this time.
[2021-11-07 21:57] LABS: Troponin I < 0.01 ng/ml (0.00-0.034)
[2021-11-07 22:12] VITALS: BP 110/50; PULSE 57; PULSE 62; RESP 18; TEMP 36.8; O2SAT 99
== END 2021-11-07 22:14 | disposition home or self-care (01) ==
PROVIDERS: Emergency Provider Emergency Medicine; PCP Emergency Medicine
DX: R07.89 Other chest pain (principal); I25.10 Atherosclerotic heart disease of native coronary artery without angina pectoris; Z87.891 Personal history of nicotine dependence
CPT/HCPCS: 71046; 80048; 84484; 85025; 93005; 99284

== ENCOUNTER → 2021-11-10 11:06 | Outpatient (CLI) | payer MEDICARE, SELFPAY | PROVIDERS: PCP Emergency Medicine; Visit Provider Internal Medicine Cardiovascular Disease | DX: Z01.812 Encounter for preprocedural laboratory examination (principal); Z20.822 Contact with and (suspected) exposure to COVID-19; I20.0 Unstable angina | CPT/HCPCS: C9803; U0003; U0005 ==

== ENCOUNTER 2021-11-12 08:32 | Day surgery (SDC) | payer MEDICARE, SELFPAY ==
[2021-11-12] VITALS (11 sets, daily range): BP systolic 111–148; BP diastolic 60–79; PULSE 50–72; RESP 18–20; TEMP 36.1–36.9; O2SAT 94–100; BMI 35.6
--- NOTE | 2021-11-12 07:04 | IR_ITS ---
APPROVED REPORT Patient Location: Outpatient PROCEDURES Left heart catheterization Left ventriculogram Selective coronary angiogram INDICATION Accelerated angina pectoris Informed consent was obtained prior to the procedure. COMPLICATIONS None Estimated Blood Loss: Less than 10 mls TECHNIQUE One percent lidocaine used to anesthetize the right anterior aspect of the wrist. The right radial artery was accessed via the Seldinger technique. A 6 Portuguese sheath was placed in the right radial artery. 2.5 mg of verapamil, 800 mcg of nitroglycerin, 1mg Lidocaine and 5000 U Heparin were given through the arterial sheath. The papa catheter was also used to perform left heart catheterization, left ventriculogram and selective coronary angiogram. At the end of the procedure the sheath was removed good hemostasis was achieved using Traclet band, patient was transferred to the postop holding area in stable condition. ANGIOGRAPHIC RESULTS The left main artery Normal The left anterior descending artery Normal The circumflex artery Normal The right coronary artery Dominant normal The MARRERO ventriculogram reveals Hyperdynamic 75% The left ventricular end-diastolic pressure 20 mmHg IMPRESSION Normal coronary arteries Hyperdynamic ventricle Elevated LVEDP consistent with diastolic dysfunction PLAN 1. Treat underlying hyperdynamic ventricle accompanied by diastolic dysfunction which is likely etiology for patient's symptoms Electronically signed by : Dhaval Taveras MD 11/12/2021 09:58:59
== END 2021-11-12 13:00 | disposition home or self-care (01) ==
PROVIDERS: PCP Emergency Medicine; Visit Provider Internal Medicine
DX: E66.9 Obesity, unspecified (principal); E78.5 Hyperlipidemia, unspecified; I10 Essential (primary) hypertension; Z95.5 Presence of coronary angioplasty implant and graft; I25.110 Atherosclerotic heart disease of native coronary artery with unstable angina pectoris; I25.2 Old myocardial infarction
CPT/HCPCS: 93458; 99152; C1725; C1769; J1644; Q9967

== ENCOUNTER → 2022-01-01 19:56 | Outpatient (CLI) | payer MEDICARE, MEDICAID, SELFPAY | PROVIDERS: PCP Emergency Medicine; Visit Provider Nurse Practitioner Family | DX: G47.33 Obstructive sleep apnea (adult) (pediatric) (principal); G47.36 Sleep related hypoventilation in conditions classified elsewhere | CPT/HCPCS: 95810 ==

== ENCOUNTER → 2022-04-24 06:12 | Outpatient (CLI) | payer MEDICARE, MEDICAID, SELFPAY | PROVIDERS: PCP Emergency Medicine; Visit Provider Physician Assistant | DX: E66.9 Obesity, unspecified (principal); I10 Essential (primary) hypertension; I25.110 Atherosclerotic heart disease of native coronary artery with unstable angina pectoris; I25.2 Old myocardial infarction; R07.9 Chest pain, unspecified; R42 Dizziness and giddiness; Z95.5 Presence of coronary angioplasty implant and graft; Z68.37 Body mass index [BMI] 37.0-37.9, adult | CPT/HCPCS: 78452; 93017; A9502 ==

== ENCOUNTER → 2022-04-29 11:48 | Outpatient (CLI) | payer MEDICARE, MEDICAID, SELFPAY ==
[2022-04-29 12:38] LABS: Basophils # 0.1 K/mm3 (0-0.2); Basophils % 1.2 % (0.1-2.0); Eosinophils # 0.1 K/mm3 (0.0-0.4); Eosinophils % 0.8 % (0.1-12.0); Hematocrit 43.1 % (37.0-47.0); Hemoglobin 13.7 g/dL (12.2-16.2); Lymphocytes # 1.9 K/mm3 (0.7-4.5); Lymphocytes % 29.5 % (10-50); Mean Corpuscular HGB Conc 31.9 g/dL (31.8-35.4); Mean Corpuscular Hemoglobin 29.8 pg (27.0-31.2); Mean Corpuscular Volume 93.5 fl (81-99); Mean Platelet Volume 7.4 fl (7.4-10.4); Monocytes # 0.3 K/mm3 (0.1-1.0); Monocytes % 4.3 % (1.7-9.3); Neutrophils # 4.1 K/mm3 (1.8-7.8); Neutrophils % 64.1 % (37.0-80.0); Platelet Count 325 K/mm3 (142-424); Red Cell Distribution Width 12.5 % (11.5-17.5); White Blood Count 6.4 K/mm3 (4.8-10.8)
[2022-04-29 13:01] LABS: Chloride 101 mmol/L (98-107); Potassium 4.1 mmoL/L (3.5-5.1); Sodium 139 mmol/L (136-145)
[2022-04-29 13:04] LABS: Alanine Aminotransferase 30 U/L (12-78); Albumin Level 4.8 g/dl (3.5-5.0); Alkaline Phosphatase 118 U/L (38-126); Anion Gap 11.1 mEq/L (5-15); Aspartate Amino Transferase 29 U/L (14-36); Bilirubin,Direct 0.2 mg/dl (0.0-0.4); Bilirubin,Indirect 0.2 mg/dL (0.0-0.9); Bilirubin,Total 0.4 mg/dl (0.2-1.3); Bilirubin,Unconjugated 0.2 mg/dL (0.0-1.1); Blood Urea Nitrogen 18 mg/dl (7-17); Calcium 9.4 mg/dl (8.4-10.2); Carbon Dioxide 31 mmol/L (22.0-30.0); Cholesterol 164 mg/dl (140-200); Estimated Glomerular Filt Rate 73 ml/min (>60); GFR (African American) 89 ML/MIN (>60); Glucose 99 mg/dl (74-100); Total Protein,Serum 7.7 g/dl (6.3-8.2); Triglycerides 77 mg/dl (30-150); VLDL Cholesterol 15 mg/dL (0-40)
[2022-04-29 13:05] LABS: HDL Cholesterol 82 mg/dl (40-60); Magnesium 2.1 mg/dl (1.6-2.3)
[2022-04-29 13:16] LABS: Direct LDL Cholesterol 53.98 mg/dL (100-129)
[2022-04-29 13:21] LABS: 25-OH Vitamin D, Total 27.2 ng/mL (30-100)
[2022-04-29 13:23] LABS: Free T4 (Free Thyroxine) 0.81 ng/dl (0.78-2.19)
[2022-04-29 13:36] LABS: Thyroid Stimulating Hormone 1.96 uIU/mL (0.465-4.68)
== END ==
PROVIDERS: PCP Emergency Medicine; Visit Provider Nurse Practitioner
DX: I10 Essential (primary) hypertension (principal); I25.110 Atherosclerotic heart disease of native coronary artery with unstable angina pectoris; I25.2 Old myocardial infarction; R07.9 Chest pain, unspecified; R42 Dizziness and giddiness; Z95.5 Presence of coronary angioplasty implant and graft; Z68.35 Body mass index [BMI] 35.0-35.9, adult; E66.9 Obesity, unspecified; E55.9 Vitamin D deficiency, unspecified
CPT/HCPCS: 36415; 80048; 80061; 80076; 82306; 83735; 84439; 84443; 85025

== ENCOUNTER → 2022-09-25 08:04 | Outpatient (CLI) | payer MEDICARE, SELFPAY ==
--- NOTE | 2022-09-25 08:04 | MR_ITS ---
FINAL REPORT CLINICAL HISTORY: low back pain LEFT SIDED BACK AND LEG PAIN X FEW MONTHS COMPARISON: None FINDINGS: Multiplanar MR imaging of the lumbar spine was performed without contrast. On the sagittal T2-weighted images, disc degeneration is seen at multiple levels. Mild anterolisthesis of L4 on L5. Endplate changes at several levels. No bony mass is identified. The conus has an unremarkable appearance. L1-2: An annular bulge is present. There is no significant canal stenosis or neural foraminal narrowing. L2-3: An annular bulge is present. There is no significant canal stenosis or neural foraminal narrowing. L3-4: Annular disc bulge, facet arthropathy, and osteophytes. Left foraminal disc protrusion. Mild right and moderate left neuroforaminal narrowing. L4-5: Annular disc bulge and facet arthropathy. Left posterior lateral disc protrusion. Mild bilateral neuroforaminal narrowing. L5-S1: Annular disc bulge, facet arthropathy, and osteophytes. Mild left neuroforaminal narrowing. IMPRESSION: Multilevel degenerative disc disease and spondylosis as described with disc protrusions at L3-4 and L4-5. Reviewed, Interpreted and Dictated by Gerald Roman III, MD Transcribed by Charis Ruvalcaba Authenticated and [facility]
== END ==
LOC: RAD 08:04
PROVIDERS: PCP Emergency Medicine; Visit Provider Emergency Medicine
DX: M54.16 Radiculopathy, lumbar region (principal); M54.50 Low back pain, unspecified
CPT/HCPCS: 72148; 76376

== ENCOUNTER 2022-10-04 06:07 | Day surgery (SDC) | payer MEDICARE, SELFPAY ==
[2022-10-01 09:30] VITALS: BMI 32.1
[2022-10-04 06:45] VITALS: BP 141/66; PULSE 80; RESP 18; TEMP 36.1; O2SAT 98
[2022-10-04 06:54] LABS: POC Glucose,Bedside 95 (70-110)
--- NOTE | 2022-10-04 07:02 | HMH.SCOPE ---
Procedure: Date: 10/04/22 Patient Date of :: 1960 Procedure Performed:: Total colonoscopy to terminal ileum with polypectomy using biopsy forceps Indications:: Patient is a 61-year-old female referred by Dr. Mccoy's office for screening colonoscopy. She has a history of previous non-STEMI, hypertension, coronary disease with stenting on Plavix, hyperlipidemia, fibromyalgia, obstructive sleep apnea, chronic lumbar pain. She had a previous colonoscopy 3 years ago in [facility] at which time she apparently had polyps removed. She has had some significant constipation stating that she usually has obstipation for 8 to 10 days and then has to take a laxative. She was therefore scheduled for colonoscopy. She does state that she has had some medication changes including potentially several constipation inducing medications. She was given Clenpiq for preparation and states that she threw up a large portion of the second half of the prep. Performing Provider:: Gerald Webster MD Referring Provider:: Torey Mccoy MD Sedation:: MAC sedation Procedure:: Patient history was obtained and appropriate physical examination was performed. Patient's medications and allergies were reviewed. Informed consent was obtained after explaining the benefits, alternatives, and risks of the procedure including, but not limited to, bleeding, perforation, missed lesions, and adverse reaction to anesthesia medications. Patient was transported to endoscopy procedure room. Patient was connected to monitoring devices. Throughout the procedure the patient's blood pressure, pulse, and oxygen saturations were monitored continuously. Patient identification and planned procedure were verified by the staff. Patient was positioned in lateral decubitus position. Digital anorectal exam was performed. Variable stiffness Olympus colonoscope was inserted and advanced under direct visualization to the cecum. Adequacy of the colonic preparation was noted. The colonoscope was advanced a short distance into the terminal ileum. The colonoscope was then slowly withdrawn while carefully examining the color, texture, anatomy, and integrity of the mucosoa circumferentially. Within the rectum retroflexion was performed. Colonoscope was then withdrawn. . Colonic preparation was good. There were no significant masses or polyps other than a tiny diminutive polyp at the rectosigmoid region removed in a piecemeal fashion using biopsy forceps. . Findings:: Hyperplastic appearing rectosigmoid polyp Recommendations:: Likely repeat colonoscopy 5 years given prior history of polyps on colonoscopy [place] of state as well as diminutive polyp during this colonoscopy. Complications:: None immediately apparent Estimated blood obtained (mL): 2 Colonoscopy Component Colonoscopy Component Was a colonoscopy performed during today's procedure?: Yes Recommended follow up colonoscopy of at least 10 years?: No If no, follow up colonoscopy recommended in ___ years?: 5 Reason for not recommending >/= 10 yr follow-up interval?: Polyp
[2022-10-04 07:19] VITALS: O2SAT 97
[2022-10-04 07:50] VITALS: BP 109/68; PULSE 72; RESP 18; TEMP 36.6; O2SAT 97
--- NOTE | 2022-10-04 07:59 | EXP.ANES.CKL ---
[facility] Disclaimer: The information contained in this section may have been updated after the patient was seen, as this information can be updated by other users. Medical History Diabetes mellitus, type 2 Trigeminal neuralgia Surgical History H/O breast biopsy H/O tubal ligation History of cardiac cath History of right heart catheterization (RHC) Hx of brain surgery x3 Family History Other Cancer Coronary artery disease Family history of stroke Social History Smoking Status: Former smoker alcohol intake: current substance use type: denies use current occupational status: disabled Travel in the last 8 weeks: None household members: other housing: house lives independently: No marital status: single education level: college service: No senior care: No caffeine: Yes do you feel safe at home: Yes victim of physical abuse: No victim of emotional abuse: No victim of sexual abuse: No would you like helpful sources: No [facility] Anesthesia Checklist Patient Identification Patient Identification: Verbal (Name & ) Structural Data Admitted From: Home Planned Operative Procedure/s: colonoscopy Consent for Planned Operative Procedure(s) Verified: Yes Airway Assessment Mallampati Score:: Class I C-Spine Mobility Assessed: Yes TMJ Mobility Assessed: Yes Dentition: Good Dentition Neurological Assessment Level of Consciousness: Awake, Alert and Appropriate Anesthesia Plan Anesthesia Risk discussed: Yes Anesthesia Plan: Verified ASA Class: II Anesthesia Type: MAC
[2022-10-04 08:00] VITALS: BP 129/61; PULSE 67; RESP 18; O2SAT 95
[2022-10-04 08:10] VITALS: BP 97/58; PULSE 66; RESP 18; O2SAT 100
[2022-10-04 08:21] VITALS: BP 100/61; PULSE 61; RESP 18; O2SAT 100
== END 2022-10-04 08:24 | disposition home or self-care (01) ==
PROVIDERS: PCP Emergency Medicine; Visit Provider Surgery
PROC: 0DJD8ZZ Inspection of Lower Intestinal Tract, Via Natural or Artificial Opening Endoscopic (ICD-10-PCS; principal; 2022-10-04 07:30)
DX: K59.00 Constipation, unspecified (principal); K63.5 Polyp of colon; Z86.010 Personal history of colon polyps; Z79.02 Long term (current) use of antithrombotics/antiplatelets; I25.2 Old myocardial infarction; E11.9 Type 2 diabetes mellitus without complications; Z95.5 Presence of coronary angioplasty implant and graft; E78.5 Hyperlipidemia, unspecified; I10 Essential (primary) hypertension
CPT/HCPCS: 45380; 82962; 88305

== ENCOUNTER → 2022-10-17 08:51 | Outpatient (POV) | payer MEDICARE, SELFPAY ==
--- NOTE | 2022-10-17 09:02 | EXP.PAIN.OV ---
HPI Data of Consult Patient: new to practice Consult date: 10/17/22 Requesting Physician: Suzette Dias APRN Primary Care Provider: Marito Mccoy MD Consult Narrative Reason for consult: Low back pain, left hip pain History of present illness: Ms. Osman is a 61 year old female who presents today as a new patient. She is a referral from Dr. Mccoy's office. Today she rates her pain a 3 out of 10 while sitting however she states it will jump up to a 7 out of 10 while walking. Patient does state that all her pain is in her low back with radiating symptoms into her left hip. Patient states this has been going on for the last several months unrelated to any specific trauma or injury. Patient does state the pain is an aching, throbbing sensation with occasional sharp stabbing sensations that are more prominent with walking or laying down. Patient states that it can be worsened by prolonged sitting. She states that she does frequently lean forward to help provide additional relief in the seated position. She also states that rest will sometimes help it. Patient does state that previously she had been walking a lot in order to lose some weight when this did start to occur. Patient does state that she is been unable to get back to this regimen due to the pain. She does state that the pain is interfering with her ability perform activities of daily living such as cooking and cleaning. Patient does state that she has had a previous back surgery and L5-S1 however she is unaware of what was actually done and denies any hardware. Patient does also state that she has had injections in the past that did provide improvement. Patient is scheduled to start physical therapy this next week. Patient has tried [id number] medications such as Tylenol and ibuprofen along with baclofen, Lortab and diclofenac and lidocaine topicals with minimal improvement. Patient is interested in any help we may be able to provide. Her Francis is [phone]. Its been reviewed and appropriate. CC: Suzette Dias APRN [facility] Disclaimer: The information contained in this section may have been updated after the patient was seen, as this information can be updated by other users. Medical History Diabetes mellitus, type 2 Trigeminal neuralgia Surgical History H/O breast biopsy H/O tubal ligation History of cardiac cath History of right heart catheterization (RHC) Hx of brain surgery x3 Family History Other Cancer Coronary artery disease Family history of stroke Social History Smoking Status: Former smoker alcohol intake: current substance use type: denies use current occupational status: disabled Travel in the last 8 weeks: None household members: other housing: house lives independently: No marital status: single education level: college service: No halfway: No caffeine: Yes do you feel safe at home: Yes victim of physical abuse: No victim of emotional abuse: No victim of sexual abuse: No would you like helpful sources: No Review of Systems Review of Systems Review of systems:: pertinent systems reviewed and negative unless documented below Review of systems (narrative): Review of Systems: General: No recent weight changes, no fever, no sleep disturbances Respiratory: No cough, no shortness of air, no recurring pulmonary infections Cardiovascular/peripheral vascular: No chest pain, no palpitations, no edema, no shortness of breath Gastrointestinal: No new onset incontinence, normal bowel movements reported Genitourinary: No new onset incontinence Musculoskeletal: Low back pain, left hip pain Psychiatric: [Normal mood/affect] Neurological: [Denies weakness in extremities], [denies balance
[2022-10-17 11:48] VITALS: BP 84/59; PULSE 68; RESP 18; O2SAT 100; BMI 31.3
== END ==
PROVIDERS: PCP Emergency Medicine; Visit Provider Nurse Practitioner Family
DX: M46.1 Sacroiliitis, not elsewhere classified; M51.16 Intervertebral disc disorders with radiculopathy, lumbar region; M47.26 Other spondylosis with radiculopathy, lumbar region
CPT/HCPCS: 99202; G0463

== ENCOUNTER 2022-10-29 09:50 | Day surgery (SDC) | payer MEDICARE, SELFPAY ==
[2022-10-29 10:05] VITALS: BP 106/60; PULSE 68; RESP 16; TEMP 36.4; O2SAT 100; BMI 30.9
[2022-10-29 10:12] VITALS: BP 102/49; PULSE 61; RESP 18; O2SAT 98
[2022-10-29 10:13] VITALS: BP 102/49; PULSE 64; RESP 18; O2SAT 98
--- NOTE | 2022-10-29 10:21 | EXP.PAIN.PRO ---
Procedure Date: 10/29/22 Time: 10:00 Anesthesiologist:: To Sauceda CRNA Complications:: None Pre-procedure Diagnosis:: Left sacroiliitis Post-procedure Diagnosis:: Same Indications for Procedure:: Patient is a very pleasant 61-year-old female that comes our clinic today for a left sacroiliac joint injection. Patient has had this in the past in a different state. She reports the shot has helped in the past. Upon examination she has extreme point tenderness over the left sacroiliac joint. Patient rates her pain 8/10. Patient has difficulty ambulating secondary to pain. Patient has difficulty transitioning from sitting to standing secondary to pain in the left posterior hip Procedure Details:: Procedure: Left sacroiliac injection under fluoroscopy Informed consent was obtained and the risk and benefits of the procedure were explained to the patient.~ The patient was taken to the procedure room and noninvasive monitors were placed including noninvasive blood pressure cuff and pulse oximeter.~ The patient was placed prone on the procedure table.~ The~ left hip was cleansed using Betadine as a cleansing solution.~ C-arm fluorosocpy was used to view the left SI joint.~ The skin and subcutaneous tissues were anesthetized using Lidocaine 1.5% and a 25-gauge needle.~ After this, a 22-gauge spinal needle was inserted under fluoroscopic guidance into the inferior aspect of the left SI joint.~ Omnipaque dye was injected and a good spread was seen throughout the joint.~ After this, approximately 5 mL of bupivacaine 0.25% and Depo-Medrol 40 mg was incrementally injected into the sacroiliac joint.~ The patient tolerated the procedure well with no complications.~ The patient was observed in the Pain Clinic for a period of 30-45 minutes, then discharged home neurologically intact.~ Plan and Disposition:: Patient was discharged without incident.
[2022-10-29 10:27] VITALS: BP 108/63; PULSE 64; RESP 20
== END 2022-10-29 10:29 | disposition home or self-care (01) ==
PROVIDERS: PCP Emergency Medicine; Visit Provider Nurse Anesthetist, Certified Registered
DX: M46.1 Sacroiliitis, not elsewhere classified (principal)
CPT/HCPCS: 27096; G0260; J1040

== ENCOUNTER → 2022-11-13 10:55 | Outpatient (POV) | payer MEDICARE, SELFPAY ==
--- NOTE | 2022-11-13 11:38 | EXP.PAIN.SOA ---
[facility] Pain Management SOAP Note Subjective:: Patient is a pleasant 62-year-old female who presents today for follow-up of left SI injection. We are currently treating the patient for low back pain with lumbar radiculopathy symptoms, degenerative disc disease of lumbar spine, sacroiliitis. Today she rates her pain a 9 out of 10. Patient states that she has had 100% improvement following her left SI injection from her hip pain and that it continues to provide significant relief. Today she states all her pain is coming from her low back and denies any radiating symptoms into her legs. Patient does state the pain is a throbbing, sharp sensation that is worse with increased activity such as bending, lifting or twisting. Patient states she has not had any new falls or injuries that would explain why her pain is so severe. She does state that the pain interferes with her ability perform activities of daily living such as cooking and cleaning. She does state that she has even been having popping as well. Patient does state the pain interferes with her ability to perform activities of daily living such as cooking and cleaning. Patient is currently managed with [place] 5 mg twice a day from Dr. Mccoy's office. Her Francis is [phone]. Its been reviewed and appropriate. Review of Systems: General: No recent weight changes, no fever, no sleep disturbances Respiratory: No cough, no shortness of air, no recurring pulmonary infections Cardiovascular/peripheral vascular: No chest pain, no palpitations, no edema, no shortness of breath Gastrointestinal: No new onset incontinence, normal bowel movements reported Genitourinary: No new onset incontinence Musculoskeletal: Low back pain Psychiatric: [Normal mood/affect] Neurological: [Denies weakness in extremities], [denies balance issues] Objective:: Physical Exam: General: Alert and oriented x3, no acute distress, pleasant and cooperative Lungs: Respirations even and unlabored, symmetrical chest expansion Eyes: PERRL Musculoskeletal: Flexion and extension of lumbar [spine] somewhat guarded secondary to pain, [antalgic gait noted] positive Kemps test Neurological: Speech clear, no gross sensory deficit Assessment:: Degenerative disc disease of lumbar spine with lumbar radiculopathy symptoms, sacroiliitis, lumbar facet arthropathy Plan:: Patient is experiencing worsening pain in her low back with limited range of motion of her lumbar spine. Patient did have a positive Kemps test during today's exam. I have discussed with the patient that she may benefit from a lumbar medial branch block. Risk and benefits were explained to the patient and she would like to proceed forward with this plan of care. Patient is currently on blood thinners of Plavix written by Dr. Taveras due to having a heart stent placed 1 year ago. I have counseled the patient that we will contact his office to confirm she can come off this medication prior to her injection. Patient will be scheduled for a lumbar medial branch block bilaterally L3-L4 and L4-L5. Patient has been instructed to contact the clinic with any concerns before the next appointment. Dr. Hagan has reviewed this note and agrees with this plan of care. This note was dictated using voice recognition software and make contain errors or omissions. [facility] Disclaimer: The information contained in this section may have been updated after the patient was seen, as this information can be updated by other users. Medical History Diabetes mellitus, type 2 Trigeminal neuralgia Surgical History H/O breast biopsy H/O tubal ligation History of cardiac cath History of right heart catheterization (RHC) Hx of brain surgery x3 Family History Other Cancer Coronary artery disease Family history of stroke Social History (Revie
[2022-11-13 12:47] VITALS: BP 123/53; PULSE 75; RESP 18; O2SAT 97; BMI 30.2
== END ==
PROVIDERS: PCP Emergency Medicine; Visit Provider Nurse Practitioner Family
DX: M51.16 Intervertebral disc disorders with radiculopathy, lumbar region (principal); M46.1 Sacroiliitis, not elsewhere classified; M47.26 Other spondylosis with radiculopathy, lumbar region
CPT/HCPCS: 99212; G0463

== ENCOUNTER 2022-12-04 11:00 | Outpatient (RCR) | payer MEDICARE, SELFPAY ==
--- NOTE | 2022-10-22 18:34 | HMH.PTOPEV ---
PT Outpatient Evaluation Rehab PT Outpatient Evaluation Start: 10/22/22 18:18 Freq: Status: Active Protocol: Document 10/22/22 18:18 EFRA (Rec: 10/22/22 18:34 EFRA [id number]) E-signed By Kevin Singh, PT Outpatient Therapy Subjective History Subjective History Saman is a 61 year old female presenting to outpatient PT with reports of sub-acute LBP with LLE radicular symptom starting approx 3 months ago. Symptom onset after an increase in activity level promoting weight loss after a DE. Most recent imaging indicate multi- level DDD, spondylosis and bulges at L3/4 4/5. Special tests indicate L upslip. Comorbidities include hx of DE /stents (LAD), trigeminal neuralgia, HTN, HL and L5/S1 discectomy. New diagnosis of cancer in past 12 No months? Chief Complaint Pain,Paresthesia Symptom Type Throb,Sharp Symptoms Relieved By Rest/Positioning,Heat,Ice, Prescription Meds Symptoms Aggravated By Sitting,Standing,Bending/ Stooping,Physical Activity, Walking,Lifting Prior Functional Limitations None Current Functional Limitations Lifting,Housework,Sleeping, Standing,Sitting,Walking, Bending/Stooping Symptom Description Constant but Variable Level of pain today (0-10) 4 Pain scale - at its best (0-10) 3 Pain scale - at its worst (0-10) 8 Lumbopelvic Eval Posture Thoracic Spine Posture Standing Position Increased Kyphosis Lumbar Spine Posture Standing Position Increased Lordosis Palapation tenderness left Lumbar/Sacral Palpation Findings Tenderness Lumbar/Sacral Palpation Overall Comment L SIJ, upper gluteal mm,QL 3/4 Accessory Movement L5 bilateral S1 bilateral Range of Motion Lumbar Spine Active Flexion Range of WNL Motion (degrees) Lumbar Spine Active Extension Range of 10 Motion (degrees) Left Lumbar Spine Lateral Flexion Active 7 Range of Motion (degrees) Right Lumbar Spine Lateral Flexion 8 Active Range of Motion (degrees) Lumbar Spine ROM Limitations Soft Tissue Tightness,Bony Restriction Manual Muscle Test Bilateral Knee Extension Strength
== END 2022-12-04 11:05 | disposition home or self-care (01) ==
LOC: PT 11:00
PROVIDERS: PCP Emergency Medicine; Visit Provider Nurse Practitioner Family
DX: M54.16 Radiculopathy, lumbar region (principal); M54.50 Low back pain, unspecified
CPT/HCPCS: 97035; 97110; 97163; 97530

== ENCOUNTER → 2022-12-06 10:35 | Outpatient (CLI) | payer MEDICARE, SELFPAY ==
[2022-12-06 13:06] LABS: Amphetamine/Metha Screen,Urine Positive ng/ml (<1000); Barbiturates Screen,Urine Negative ng/ml (<200)
[2022-12-06 13:07] LABS: Cannabinoid Screen,Urine Negative ng/ml (<50)
[2022-12-06 13:08] LABS: Benzodiazepines Screen,Urine Negative ng/ml (<200)
[2022-12-06 13:09] LABS: Cocaine Screen,Urine Negative ng/ml (<300); Methadone Screen,Urine Negative ng/ml (<300)
[2022-12-06 13:10] LABS: Opiate Screen,Urine Negative ng/ml (<300); Phencyclidine Screen,Urine Negative ng/ml (<25)
== END ==
PROVIDERS: PCP Emergency Medicine; Visit Provider Emergency Medicine
DX: Z79.899 Other long term (current) drug therapy (principal)
CPT/HCPCS: 80305

== ENCOUNTER → 2022-12-30 13:24 | Outpatient (CLI) | payer MEDICARE, SELFPAY ==
--- NOTE | 2022-12-30 13:30 | XR_ITS ---
FINAL REPORT CLINICAL HISTORY: wrist and hand pain..fall down stairs 2 days ago FINDINGS: RIGHT HAND Three views demonstrate no acute fracture or dislocation. There are moderately advanced changes of osteoarthritis at the DIP, PIP and first IP joint. Moderate hypertrophic changes are seen of the basilar joint. Soft tissues are unremarkable. IMPRESSION: Degenerative changes without acute bony abnormality. Reviewed, Interpreted and Dictated by Gavino Yeboah MD Transcribed by Lakshmi Ferrera Authenticated and [facility]
--- NOTE | 2022-12-30 13:30 | XR_ITS ---
FINAL REPORT CLINICAL HISTORY: wrist and hand pain..fall down stairs 2 days ago FINDINGS: RIGHT WRIST Three views demonstrate no acute fracture or dislocation. The visualized joint spaces are normally aligned. Moderate hypertrophic changes are seen at the basilar joint. The soft tissues are unremarkable. IMPRESSION: No acute bony abnormality. Reviewed, Interpreted and Dictated by Gavino Yeboah MD Transcribed by Lakshmi Ferrera Authenticated and . [facility]
== END ==
PROVIDERS: PCP Emergency Medicine; Visit Provider Emergency Medicine
DX: M25.531 Pain in right wrist (principal); M79.641 Pain in right hand
CPT/HCPCS: 73110; 73130

== ENCOUNTER → 2022-12-31 11:04 | Outpatient (CLI) | payer MEDICARE, SELFPAY | LOC: RT 11:06 | PROVIDERS: PCP Emergency Medicine; Visit Provider Nurse Practitioner | DX: R42 Dizziness and giddiness (principal); I25.10 Atherosclerotic heart disease of native coronary artery without angina pectoris; I11.9 Hypertensive heart disease without heart failure; R55 Syncope and collapse; R29.6 Repeated falls | CPT/HCPCS: 93225 ==

== ENCOUNTER → 2023-01-02 15:02 | Outpatient (CLI) | payer MEDICARE, SELFPAY | LOC: RT 15:03 | PROVIDERS: PCP Emergency Medicine; Visit Provider Nurse Practitioner Family | DX: R42 Dizziness and giddiness (principal); I25.10 Atherosclerotic heart disease of native coronary artery without angina pectoris; I11.9 Hypertensive heart disease without heart failure; R55 Syncope and collapse; R29.6 Repeated falls; Z87.891 Personal history of nicotine dependence | CPT/HCPCS: 93270 ==

== ENCOUNTER 2023-01-16 07:29 | Day surgery (SDC) | payer MEDICARE, SELFPAY ==
[2023-01-16] VITALS (12 sets, daily range): BP systolic 82–121; BP diastolic 50–74; PULSE 63–75; RESP 17–18; O2SAT 96–98; BMI 29.6
--- NOTE | 2023-01-16 07:08 | IR_ITS ---
APPROVED REPORT Patient Location: [facility] Operator: ADRIAN Salgado RT (R) PROCEDURES Left heart catheterization Left ventriculogram Selective coronary angiogram INDICATION Family history of coronary disease, History of coronary artery disease, Angina pectoris, Syncope Informed consent was obtained prior to the procedure. COMPLICATIONS None Estimated Blood Loss: Less than 10 mls TECHNIQUE One percent lidocaine used to anesthetize the right anterior aspect of the wrist. The right radial artery was accessed via the Seldinger technique. A 6 [place]ic sheath was placed in the right radial artery. 2.5 mg of Verapamil, 800 mcg of nitroglycerin, 1mg Lidocaine and 5000 U Heparin were given through the arterial sheath. The papa catheter was also used to perform left heart catheterization, left ventriculogram and selective coronary angiogram. At the end of the procedure the sheath was removed good hemostasis was achieved using Traclet band, patient was transferred to the postop holding area in stable condition. ANGIOGRAPHIC RESULTS The left main artery Normal The left anterior descending artery Has proximal 10% luminal irregularities with 10% mid vessel luminal irregularities The circumflex artery 10% luminal irregularities The right coronary artery Dominant normal The MARRERO ventriculogram reveals Normal 65% The left ventricular end-diastolic pressure 15 mmHg IMPRESSION Mild nonflow limiting luminal irregularities in the LAD and circumflex artery Normal ejection fraction Normal LVEDP PLAN 1. Medical management Electronically signed by : Dhaval Taveras MD 01/16/2023 10:55:48
[2023-01-16 08:56] LABS: Basophils # 0.1 K/mm3 (0-0.2); Basophils % 0.8 % (0.1-2.0); Eosinophils # 0.1 K/mm3 (0.0-0.4); Hematocrit 40.4 % (37.0-47.0); Hemoglobin 13.3 g/dL (12.2-16.2); Lymphocytes # 2.2 K/mm3 (0.7-4.5); Lymphocytes % 28.6 % (10-50); Mean Corpuscular HGB Conc 32.9 g/dL (31.8-35.4); Mean Corpuscular Hemoglobin 31.5 pg (27.0-31.2); Mean Corpuscular Volume 95.7 fl (81-99); Mean Platelet Volume 7.7 fl (7.4-10.4); Monocytes # 0.3 K/mm3 (0.1-1.0); Monocytes % 4.2 % (1.7-9.3); Neutrophils # 5.1 K/mm3 (1.8-7.8); Neutrophils % 65.3 % (37.0-80.0); Platelet Count 350 K/mm3 (142-424); Red Blood Count 4.23 M/mm3 (4.20-5.40); Red Cell Distribution Width 12.8 % (11.5-17.5); White Blood Count 7.8 K/mm3 (4.8-10.8)
[2023-01-16 09:09] LABS: Anion Gap 11.4 mEq/L (5-15); Blood Urea Nitrogen 18 mg/dl (7-17); Calcium 8.9 mg/dl (8.4-10.2); Carbon Dioxide 32 mmol/L (22.0-30.0); Chloride 96 mmol/L (98-107); Creatinine Clearance Estimated 119 mL/min (50-200); Estimated Glomerular Filt Rate 85 ml/min (>60); GFR (African American) 103 ML/MIN (>60); Glucose 86 mg/dl (74-100); Potassium 3.4 mmoL/L (3.5-5.1); Sodium 136 mmol/L (136-145)
== END 2023-01-16 14:30 | disposition home or self-care (01) ==
PROVIDERS: PCP Emergency Medicine; Visit Provider Internal Medicine
DX: I10 Essential (primary) hypertension (principal); I25.118 Atherosclerotic heart disease of native coronary artery with other forms of angina pectoris; R29.6 Repeated falls; R42 Dizziness and giddiness; R55 Syncope and collapse; Z79.899 Other long term (current) drug therapy; Z79.01 Long term (current) use of anticoagulants; Z95.5 Presence of coronary angioplasty implant and graft; Z87.891 Personal history of nicotine dependence; Z82.49 Family history of ischemic heart disease and other diseases of the circulatory system
CPT/HCPCS: 80048; 85025; 93458; 99152; C1725; C1769; J1644; Q9967

== ENCOUNTER 2023-08-06 12:34 | Outpatient (CLI) | payer MEDICARE, SELFPAY ==
--- NOTE | 2023-08-06 12:39 | MM_ITS ---
PROCEDURE INFORMATION: Exam: MG Bilateral Screening 3D Mammography Exam date and time: 08/06/2023 12:54 PM Age: 62 years old Clinical indication: Screening examination TECHNIQUE: Imaging protocol: Bilateral Screening tomosynthesis and 2D mammography including computer-aided detection (CAD) when performed. COMPARISON: No relevant prior studies available. FINDINGS: MAMMOGRAPHY: Breast composition: There are scattered areas of fibroglandular density. Mass: Two clips are noted in the left breast. The inferior clip is associated with a 1.4 cm ovoid well-circumscribed mass. By report, the biopsy was benign. Architectural distortion: None. Calcifications: No suspicious calcifications. Asymmetric density: None. Skin thickening: None. Axillary adenopathy: None. IMPRESSION: No mammographic evidence of malignancy. Annual screening is recommended unless otherwise clinically indicated. ASSESSMENT: BI-RADS Category 2: Benign.
== END 2023-08-06 23:59 | disposition home or self-care (01) ==
LOC: RAD 12:35
PROVIDERS: PCP Nurse Practitioner Family; Visit Provider Nurse Practitioner Family
DX: Z12.31 Encounter for screening mammogram for malignant neoplasm of breast (principal)
CPT/HCPCS: 77063; 77067

== ENCOUNTER 2023-12-23 11:33 | Outpatient (POV) | payer MEDICARE, SELFPAY | END 2023-12-23 23:59 | disposition home or self-care (01) | LOC: SC 11:33 | PROVIDERS: PCP Nurse Practitioner Family; Visit Provider Specialist/Technologist | DX: Z00.00 Encounter for general adult medical examination without abnormal findings (principal) ==

== ENCOUNTER 2023-12-29 15:58 | Emergency (ER) | payer MEDICARE, SELFPAY ==
[2023-12-29 16:00] VITALS: BP 109/50; PULSE 61; RESP 18; TEMP 36.4; O2SAT 100; BMI 26.7
--- NOTE | 2023-12-29 17:01 | ECG_ITS ---
APPROVED REPORT Exam: Resting ECG HR:58 bpm ECG Measurements Heart Rate 58 AXES WI 180 P 74 QRSd 86 QRS 69 QT 411 T 73 QTc 408 Conclusion SINUS BRADYCARDIA BORDERLINE ECG Electronically signed by : MICHEL ANGUIANO, 12/30/2023 00:06:36
--- NOTE | 2023-12-29 17:03 | ED_ITS ---
<Statement entered by Suzette Barrios DO - 12/29/23 23:37> I was consulted by the RICHAR, and we discussed the complexity of the problems being addressed. I approved the treatment and management plan for this patient's care in the emergency department, thus performing a substantive portion of the medical decision making. Suzette Barrios DO Discharge Plan Disposition Patient Disposition: Home, Self-Care Condition: Good Prescriptions Prescriptions: New ondansetron 4 mg tablet,disintegrating 4 mg PO Q6H PRN (Reason: nausea and vomiting) Qty: 10 0RF sulfamethoxazole-trimethoprim [Bactrim DS] 800-160 mg tablet 1 tab PO BID 5 Days Qty: 10 0RF No Action meclizine 25 mg tablet 25 mg PO TID PRN (Reason: dizziness) Qty: 60 1RF irbesartan 75 mg tablet 75 mg PO DAILY Patient Comments: TAKE ONE TABLET BY MOUTH EVERY DAY metoprolol succinate 25 mg tablet extended release 24 hr 25 mg PO DAILY Patient Comments: TAKE ONE TABLET BY MOUTH EVERY DAY azelastine 137 mcg (0.1 %) spray,non-aerosol 2 spray intranasal BID Qty: 30 2RF Rx Instructions: administer into each nostril baclofen 10 mg tablet 10 mg PO BID Patient Comments: TAKE ONE TABLET BY MOUTH TWICE DAILY clopidogrel 75 mg tablet See Rx Instructions .ROUTE .COMPLEX Qty: 90 3RF Dose Instruction: TAKE ONE TABLET BY MOUTH EVERY DAY Rx Instructions: TAKE ONE TABLET BY MOUTH EVERY DAY atorvastatin 80 mg tablet See Rx Instructions .ROUTE .COMPLEX Qty: 90 3RF Dose Instruction: TAKE ONE TABLET BY MOUTH EVERY DAY AT BEDTIME Rx Instructions: TAKE ONE TABLET BY MOUTH EVERY DAY AT BEDTIME duloxetine 60 mg capsule,delayed release(DR/EC) See Rx Instructions .ROUTE .COMPLEX Qty: 90 0RF Dose Instruction: TAKE ONE CAPSULE BY MOUTH EVERY DAY FOR fibromyalgia Rx Instructions: TAKE ONE CAPSULE BY MOUTH EVERY DAY FOR fibromyalgia Ozempic 2 mg/dose (8 mg/3 mL) pen injector See Rx Instructions .ROUTE .COMPLEX Qty: 3 2RF Dose Instruction: INJECT 2 MG SUBCUTANEOUSLY ONCE A WEEK Rx Instructions: INJECT 2 MG SUBCUTANEOUSLY ONCE A WEEK oxcarbazepine 300 mg tablet See Rx Instructions .ROUTE .COMPLEX Qty: 14 0RF Dose Instruction: TAKE TWO TABLETS BY MOUTH THREE TIMES DAILY Rx Instructions: TAKE TWO TABLETS BY MOUTH THREE TIMES DAILY ropinirole 1 mg tablet See Rx Instructions .ROUTE .COMPLEX Qty: 30 0RF Dose Instruction: TAKE ONE TABLET ONCE DAILY 1-3 hours BEFORE bedtime Rx Instructions: TAKE ONE TABLET ONCE DAILY 1-3 hours BEFORE bedtime aspirin 81 MG tablet,delayed release (DR/EC) 81 mg PO DAILY lidocaine 5 % adhesive patch,medicated 1 patch topical DAILY Rx Instructions: leave on most painful area for up to 12 hrs Referrals Follow up/Referrals: Ezequiel Mahtews APRN [Primary Care Provider] - See instructions Activity Restrictions/Add. Instructions Additional Instructions/Restrictions: As we discussed keep your follow-up with Dr. Wick of GI. Follow-up with your PCP if there is no improvement or worsening signs or symptoms or return to the ER as needed. I have sent nausea medication into your pharmacy. Clinical Impressions Clinical Impression: Diarrhea Qualifiers: Diarrhea type: unspecified type Qualified Code(s): R19.7 - Diarrhea, unspecified Nausea & vomiting Qualifiers: Vomiting type: unspecified Qualified Code(s): R11.2 - Nausea with vomiting, unspecified Instructions Patient Instructions: DI for Diarrhea and Traveler's Diarrhea -- Adult, DI for Nausea -- Adult Print Language Print Language: Divehi Discharge ED Provider: Suzette Barrios General Adult HPI <JOSIAH Person - Last Filed: 12/29/23 20:46> General Chief complaint: Dizziness Stated complaint: vomiting diarrhea dizziness/lh pass out Time Seen by Provider: 12/29/23 17:02 History of Present Illness HPI narrative: Patient presents for evaluation of nausea vomiting dizziness. Patient states that she has had 3 weeks of yellowy diarrhea. She has however denied fever chills hemoptysis hematochezia melena hematemesis. She states that she is only going a few times a day but it is very watery. She states however she has sought no treatment until today. She reports that she feels dizzy lightheaded and like she is going to pass out . Related Data Home Medications ?Medication ?Instructions ?Recorded ?Confirmed aspirin 81 mg tablet,delayed 81 mg PO DAILY prevent' 11/12/21 12/29/23 release lidocaine 5 % topical patch 1 patch topical DAILY Pain 10/01/22 12/29/23 irbesartan 75 mg tablet 75 mg PO DAILY 11/19/23 12/29/23 metoprolol succinate 25 mg 25 mg PO DAILY 11/19/23 12/29/23 tablet,extended release 24 hr baclofen 10 mg tablet 10 mg PO BID 12/23/23 12/29/23 Previous Rx's ?Medication ?Instructions ?Recorded clopidogrel 75 mg tablet See Rx Instructions .Route 03/20/23 .COMPLEX #90 tabs atorvastatin 80 mg tablet See Rx Instructions .Route 09/01/23 .COMPLEX #90 tabs duloxetine 60 mg capsule,delayed See Rx Instructions .Route 09/22/23 release .COMPLEX #90 caps meclizine 25 mg tablet 25 mg PO TID PRN dizziness #60 tabs 10/29/23 semaglutide 2 mg/dose (8 mg/3 mL) See Rx Instructions .Route 11/16/23 subcutaneous pen injector (Ozempic) .COMPLEX #3 mL azelastine 137 mcg (0.1 %) nasal 2 spray intranasal BID #30 mL 11/19/23 spray oxcarbazepine 300 mg tablet See Rx Instructions .Route 11/24/23 .COMPLEX #14 tabs ropinirole 1 mg tablet See Rx Instructions .Route 12/15/23 .COMPLEX #30 tabs ondansetron 4 mg disintegrating 4 mg PO Q6H PRN nausea and 12/29/23 tablet vomiting #10 tabs sulfamethoxazole 800 1 tab PO BID 5 days #10 tabs 12/29/23 mg-trimethoprim 160 mg tablet (Bactrim DS) Allergies Allergy/AdvReac Type Severity Reaction Status Date / Time bee venom protein (honey bee) Allergy Other Verified 12/29/23 17:08 Penicillins Allergy Other Verified 12/29/23 17:08 [facility] <JOSIAH Person - Last Filed: 12/29/23 20:46> [facility] Disclaimer: The information contained in this section may have been updated after the patient was seen, as this information can be updated by other users. Medical History Tinnitus aurium 90% of time in left ear and intermittent in right ear Sensorineural hearing loss (SNHL) of both ears moderate per Audiometric Dysfunction of both eustachian tubes Tinnitus, bilateral Hearing difficulty of both ears Angina pectoris Falls frequently Diabetes mellitus type 2 in nonobese Syncope and collapse This patient has apparently had multiple episodes of syncope. With this last one she does not remember falling, just feeling dizzy and the next thing she knew she was at the bottom of the stairs. She has no idea whether she was out for any length of time. I am very concerned that this may be cardiac in origin I have called Dr. Taveras and his team and they will see her tomorrow morning at 10 AM. She needs a full work-up. I have told her that she should not be driving at all and that she should have loved ones bring her to and from various appointments. Additionally she should stay off stairs, unless she is accompanied by someone, before this full work-up is undertaken. Patient does have a significant history of coronary artery disease as well as diabetes mellitus. There may well be a neurologic component to this such as a posterior circulation issue but I think the cardiac work-up needs to be done first. Lumbar radiculopathy Lumbar facet arthropathy Lumbar spondylosis Diabetes mellitus, type 2 Nocturnal hypoxemia WILLIS (obstructive sleep apnea) Trigeminal neuralgia BMI 35.0-35.9,adult History of VA (myocardial infarction) Trigeminal neuralgia Patient states she is taking lorazepam for her trigeminal neuralgia. This is not a classic treatment for this ailment. Although she tells me she is taking it rarely. Coronary artery disease OCT 2021-Medical mgt, listed as normal coronary arteries. JULY 2021-Successful stent to the ostial left main artery critical disease reduced to 0% with 1 drug-eluting stent HTN (hypertension) NSTEMI (non-ST elevated myocardial infarction) Surgical History History of right heart catheterization (RHC) Hx of brain surgery x3 H/O tubal ligation H/O breast biopsy History of cardiac cath History of coronary artery stent placement Patient has a clear history of coronary artery disease with stent placement. This certainly lends more support to a cardiologic etiology of her syncope. Family History Other Cancer Coronary artery disease Family history of stroke Social History Smoking Status: Never smoker alcohol intake: current alcohol intake frequency: holidays/special occasions only substance use type: denies use current occupational status: disabled Travel in the last 8 weeks: None household members: other housing: house lives independently: No marital status: single education level: college service: No intermediate: No caffeine: Yes do you feel safe at home: Yes victim of physical abuse: No victim of emotional abuse: No victim of sexual abuse: No would you like helpful sources: No Other Medical History Have you received the Flu Vaccine for this season: No Have you received the Pneumonia Vaccine: No <JOSIAH Person - Last Filed: 12/29/23 20:46> ROS Obtained: Yes Systems reviewed as appropriate & no additional complaints except as documented Physical Exam <JOSIAH Person - Last Filed: 12/29/23 20:46> General General appearance: alert and in no apparent distress Respiratory Respiratory exam: Present normal lung sounds bilaterally Cardiovascular Cardiovascular exam: Present regular rate Neurological Exam Neurological exam: Present alert and oriented X3 Medical Decision Making <JOSIAH Person - Last Filed: 12/29/23 20:46> Medical Records Medical records reviewed: Yes I reviewed the patient's medical records. Screening: Per USPSTF and CDC recommendations, given the prevalence of disease in our region, it is our hospital?s policy to screen for HIV and viral Hepatitis for all patients aged 18 and over and those with ongoing risk factors. Francis Inquiry Pt receiving controlled substance: No Vital Signs: 12/29/23 16:00 Temperature 97.6 F Temperature Source Oral Pulse Rate [Left Radial] 61 Respiratory Rate 18 Blood Pressure [Right Arm] 109/50 L Blood Pressure Mean [Right Arm] 69 Blood Pressure Source [Right Arm] Automatic Cuff Blood Pressure Position [Right Arm] Sitting 02 Sat by Pulse Oximetry 100 Oxygen Delivery Method Room Air Lab Data Lab results reviewed: Yes I reviewed the patient's lab results. Lab Results 12/29/23 16:58: HIV 1&2 Antibody Rapid Nonreactive 12/29/23 16:59: WBC 5.3, RBC 4.32, Hgb 13.4, Hct 37.8, MCV 87.5, MCH 31.1, MCHC 35.6 H, RDW 13.2, Plt Count 261, MPV 7.4, Neut % (Auto) 52.1, Lymph % (Auto) 38.9, Buchanan % (Auto) 7.1, Eos % (Auto) 0.9, Baso % (Auto) 1.0, Neut # (Auto) 2.8, Lymph # (Auto) 2.1, Buchanan # (Auto) 0.4, Eos # (Auto) 0.1, Baso # (Auto) 0.1, Sodium 141, Potassium 3.5, Chloride 102, Carbon Dioxide 31 H, Anion Gap 11.5, BUN 13, Creatinine 0.60, Estimated Creat Clear 74, Estimated GFR 102, Est GFR ( Amer) 123, Glucose 90, Calcium 9.2, Total Bilirubin 0.6, AST 30, ALT 19, Alkaline Phosphatase 79, Troponin I < 0.01, Total Protein 6.7, Albumin 4.1, Globulin 2.6, Albumin/Globulin Ratio 1.6 12/29/23 17:32: Urine Color Suzette, Urine Appearance Cloudy, Urine pH 6.0, Ur Specific [place] >= 1.030, Urine Protein 2+ A, Urine Glucose (UA) Negative, Urine Ketones Negative, Urine Blood Negative, Urine Nitrate Negative, Urine Bilirubin 2+ A, Urine Urobilinogen 0.2, Ur Leukocyte Esterase 2+ A, Urine RBC None, Urine WBC Tntc, Ur Squamous Epith Cells 20-50, Urine Bacteria 3+ 12/29/23 16:59 12/29/23 16:59 Orders (Tests/Meds): ED MEDICATIONS Discontinued Medications Generic Name Dose Route Start Last Admin Trade Name Freq PRN Reason Stop Dose Admin Sodium Chloride 1,000 mls @ 999 mls/hr 12/29/23 17:07 12/29/23 17:18 Sod Chlor 0.9% 1000ml Bag IV 12/29/23 18:07 999 mls/hr .Q1H1M ONE Administration Ondansetron HCl 4 mg 12/29/23 17:06 12/29/23 17:18 Ondansetron 4mg/2ml Vial IV 12/29/23 17:07 4 mg ONCE ONE Administration ORDERS Category Date Time Status Complete Blood Count Auto Diff Stat Lab 12/29/23 16:59 Completed Comprehensive Metabolic Panel Stat Lab 12/29/23 16:59 Completed Diarrhea 23 Panel, PCR Stat Lab 12/29/23 17:32 Ordered HIV (1&2) Antibody Rapid Stat Lab 12/29/23 16:58 Completed Hep C Ab with Reflex to RNA Stat Lab 12/29/23 16:58 Received Troponin I Q3H Lab 12/29/23 20:15 Ordered Troponin I Q3H Lab 12/29/23 23:15 Ordered Troponin I Stat Lab 12/29/23 16:59 Completed Urinalysis and Microscopic Stat Lab 12/29/23 17:32 Completed Urine Culture Stat Micro 12/29/23 17:32 Received Medical Decision Narrative: In summary patient is a 63-year-old female who presents to the emergency department for evaluation of nausea vomiting diarrhea dizziness. Patient is initially normotensive at 109/50 with a heart rate of 61 upon arrival, afebrile. Physical exam is remarkable for no increased work of breathing, no chest pain on palpation, no abdominal tenderness on exam with normal bowel sounds without rebound or guarding or rigidity.. Differential diagnosis includes gastroenteritis versus functional diarrhea versus dehydration etc. Initial workup will be conducted with hematologic labs. Initial interventions include crystalloid bolus Zofran. Initial workup reviewed by me shows that her hematologic labs are nonactionable however urinalysis shows 2+ protein negative ketones negative blood 2+ bilirubin and 2+ leukocyte Estrace on dipstick with microscopic exam showing 0 red blood cells too numerous to count white cells 20- 50 epithelial cells indicating contamination and 3+ bacteria. Upon repeat evaluation reinterviewed the patient regarding any dysuria which she has none. Patient feels much better after fluids and Zofran. Given this patient is appropriate for discharge with prescription for Zofran and instructions that should she develop any dysuria she is to start Bactrim if she continues to feel better with no recurrence of her symptoms she can disregard the prescription as I feel that this is contamination and not true dysuria. <Suzette Barrios, DO - Last Filed: 12/29/23 17:31> Vital Signs: 12/29/23 16:00 Temperature 97.6 F Temperature Source Oral Pulse Rate [Left Radial] 61 Respiratory Rate 18 Blood Pressure [Right Arm] 109/50 L Blood Pressure Mean [Right Arm] 69 Blood Pressure Source [Right Arm] Automatic Cuff Blood Pressure Position [Right Arm] Sitting 02 Sat by Pulse Oximetry 100 Oxygen Delivery Method Room Air Lab Data Lab Results 12/29/23 16:58: HIV 1&2 Antibody Rapid Nonreactive 12/29/23 16:59: WBC 5.3, RBC 4.32, Hgb 13.4, Hct 37.8, MCV 87.5, MCH 31.1, MCHC 35.6 H, RDW 13.2, Plt Count 261, MPV 7.4, Neut % (Auto) 52.1, Lymph % (Auto) 38.9, Buchanan % (Auto) 7.1, Eos % (Auto) 0.9, Baso % (Auto) 1.0, Neut # (Auto) 2.8, Lymph # (Auto) 2.1, Buchanan # (Auto) 0.4, Eos # (Auto) 0.1, Baso # (Auto) 0.1, Sodium 141, Potassium 3.5, Chloride 102, Carbon Dioxide 31 H, Anion Gap 11.5, BUN 13, Creatinine 0.60, Estimated Creat Clear 74, Estimated GFR 102, Est GFR ( Amer) 123, Glucose 90, Calcium 9.2, Total Bilirubin 0.6, AST 30, ALT 19, Alkaline Phosphatase 79, Troponin I < 0.01, Total Protein 6.7, Albumin 4.1, Globulin 2.6, Albumin/Globulin Ratio 1.6 12/29/23 17:32: Urine Color Suzette, Urine Appearance Cloudy, Urine pH 6.0, Ur Specific [place] >= 1.030, Urine Protein 2+ A, Urine Glucose (UA) Negative, Urine Ketones Negative, Urine Blood Negative, Urine Nitrate Negative, Urine Bilirubin 2+ A, Urine Urobilinogen 0.2, Ur Leukocyte Esterase 2+ A, Urine RBC None, Urine WBC Tntc, Ur Squamous Epith Cells 20-50, Urine Bacteria 3+ Orders (Tests/Meds): ED MEDICATIONS Discontinued Medications Generic Name Dose Route Start Last Admin Trade Name Freq PRN Reason Stop Dose Admin Sodium Chloride 1,000 mls @ 999 mls/hr 12/29/23 17:07 12/29/23 17:18 Sod Chlor 0.9% 1000ml Bag IV 12/29/23 18:07 999 mls/hr .Q1H1M ONE Administration Ondansetron HCl 4 mg 12/29/23 17:06 12/29/23 17:18 Ondansetron 4mg/2ml Vial IV 12/29/23 17:07 4 mg ONCE ONE Administration ORDERS Category Date Time Status Complete Blood Count Auto Diff Stat Lab 12/29/23 16:59 Completed Comprehensive Metabolic Panel Stat Lab 12/29/23 16:59 Completed Diarrhea 23 Panel, PCR Stat Lab 12/29/23 17:32 Ordered HIV (1&2) Antibody Rapid Stat Lab 12/29/23 16:58 Completed Hep C Ab with Reflex to RNA Stat Lab 12/29/23 16:58 Received Troponin I Q3H Lab 12/29/23 20:15 Ordered Troponin I Q3H Lab 12/29/23 23:15 Ordered Troponin I Stat Lab 12/29/23 16:59 Completed Urinalysis and Microscopic Stat Lab 12/29/23 17:32 Completed Urine Culture Stat Micro 12/29/23 17:32 Received ECG Data Tracing #1: I reviewed this ECG and interpreted as documented below: Sinus bradycardia ventricular rate of [address] changes concerning for ischemia. ECG initial impression date: 12/29/23 ECG initial impression time: 15:07 Critical Care <JOSIAH Person - Last Filed: 12/29/23 20:46> Critical Care Time Critical Care Time: No
[2023-12-29] MEDS: 0.9 % SODIUM CHLORIDE 1000ML 1,000 ML 999 ML IV (17:18)
[2023-12-29] MEDS: ONDANSETRON 4MG/2ML VIAL 4 MG IV (17:18)
[2023-12-29 17:26] LABS: Albumin Level 4.1 g/dl (3.5-5.0); Albumin/Globulin Ratio 1.6 (1.1-1.8); Basophils # 0.1 K/mm3 (0-0.2); Blood Urea Nitrogen 13 mg/dl (7-17); Calcium 9.2 mg/dl (8.4-10.2); Carbon Dioxide 31 mmol/L (22.0-30.0); Creatinine Clearance Estimated 74 mL/min (50-200); Eosinophils # 0.1 K/mm3 (0.0-0.4); Eosinophils % 0.9 % (0.1-12.0); Estimated Glomerular Filt Rate 102 ml/min (>60); GFR (African American) 123 ML/MIN (>60); Globulin 2.6 g/dL (1.3-3.2); Glucose 90 mg/dl (74-100); Hematocrit 37.8 % (37.0-47.0); Hemoglobin 13.4 g/dL (12.2-16.2); Lymphocytes # 2.1 K/mm3 (0.7-4.5); Lymphocytes % 38.9 % (10-50); Mean Corpuscular HGB Conc 35.6 g/dL (31.8-35.4); Mean Corpuscular Hemoglobin 31.1 pg (27.0-31.2); Mean Corpuscular Volume 87.5 fl (81-99); Mean Platelet Volume 7.4 fl (7.4-10.4); Monocytes # 0.4 K/mm3 (0.1-1.0); Monocytes % 7.1 % (1.7-9.3); Neutrophils # 2.8 K/mm3 (1.8-7.8); Neutrophils % 52.1 % (37.0-80.0); Platelet Count 261 K/mm3 (142-424); Potassium 3.5 mmoL/L (3.5-5.1); Red Blood Count 4.32 M/mm3 (4.20-5.40); Red Cell Distribution Width 13.2 % (11.5-17.5); Total Protein,Serum 6.7 g/dl (6.3-8.2); White Blood Count 5.3 K/mm3 (4.8-10.8)
[2023-12-29 17:27] LABS: Alanine Aminotransferase 19 U/L (12-78); Alkaline Phosphatase 79 U/L (38-126); Aspartate Amino Transferase 30 U/L (14-36); Bilirubin,Total 0.6 mg/dl (0.2-1.3); Sodium 141 mmol/L (136-145)
[2023-12-29 17:43] LABS: Troponin I < 0.01 ng/ml (0.00-0.034)
[2023-12-29 17:44] LABS: Microscopic, Urine URINE MICROSCOPIC (MICROSCOPIC)
[2023-12-29 17:49] LABS: Anion Gap 11.5 mEq/L (5-15); Chloride 102 mmol/L (98-107)
[2023-12-29 18:28] LABS: HIV (1&2) Antibody Rapid NONREACTIVE (NONREACTIVE)
[2023-12-29 18:54] LABS: Appearance,Urine CLOUDY (Clear); Blood, Urine Negative (Negative); Color,Urine AMBER (Yellow); Glucose,Urine (UA) Negative (Negative); Ketones,Urine Negative (Negative); Leukocyte Esterase,Urine 2+ (Negative); Nitrate,Urine Negative (Negative); Protein,Urine 2+ (Negative); Specific Gravity, Urine >= 1.030 (1.005-1.030); Urobilinogen,Urine 0.2 EU/dl (0.2)
[2023-12-29 19:31] LABS: Bilirubin,Urine 2+ (Negative)
[2023-12-29 19:33] LABS: Bacteria,Urine 3+ /lpf; Squamous Epithelial Cell,Urine 20-50 #/hpf (0-5); WBC,Urine TNTC #/hpf (0-3)
[2023-12-29 20:45] VITALS: BP 112/70; PULSE 78; RESP 18; TEMP 36.7; O2SAT 97
[2023-12-30 09:22] LABS: HCV Ab Non Reactive (Non Reactive)
== END 2023-12-29 20:48 | disposition home or self-care (01) ==
PROVIDERS: Physician Assistant; Emergency Provider Emergency Medicine; PCP Nurse Practitioner Family
DX: R11.2 Nausea with vomiting, unspecified (principal); R42 Dizziness and giddiness; R19.7 Diarrhea, unspecified
CPT/HCPCS: 80053; 81001; 84484; 85025; 86803; 87086; 87389; 93005; 96361; 96374; 99283; J2405; J7030

== ENCOUNTER 2024-01-21 07:23 | Day surgery (SDC) | payer MEDICARE, SELFPAY ==
[2024-01-21 07:27] VITALS: BMI 26.9
[2024-01-21 08:02] VITALS: BP 144/76; PULSE 67; RESP 20; O2SAT 97
[2024-01-21 08:41] VITALS: BP 108/71; PULSE 68; RESP 20; O2SAT 96
[2024-01-21] MEDS: LIDOCAINE 2% W/EPI 1:100,000 20ML VIAL 20 ML SUBCUT (08:45)
[2024-01-21] MEDS: CLINDAMYCIN PHOSPHATE 600 MG in 0.9 % SODIUM CHLORIDE 100 ML 100 MG IV (08:45)
[2024-01-21 08:47] VITALS: BP 97/59; PULSE 70; RESP 20; O2SAT 95
--- NOTE | 2024-01-21 09:30 | P.PCN_ITS ---
[facility] Loop Recorder Date: 01/21/24 Time: 09:30 Procedure Performed:: Implantation of loop recorder Indication:: Syncope Technique:: Patient was brought to the cardiac Safety Deposit Clerk. After informed consent obtained, 1% lidocaine with epinephrine was used to anesthetize the site along the left anterior aspect of the chest near the sternal border. Using the preformed scalpel, an incision was made and using the supplied preloaded apparatus, the loop recorder was placed subcutaneously without difficulty. Following the deployment of the loop recorder interrogation of the device was performed to ensure appropriate voltage was being detected. Once this was verified, Steri- Strips were placed over the incision and the patient was prepped to discharge home. Patient tolerated the procedure well with minimal discomfort. Impression:: Successful implantation of loop recorder Serial Number:: [employer] EL plus Model number [id number] Serial #[id number] Plan:: Routine postop care
== END 2024-01-21 09:20 | disposition home or self-care (01) ==
PROVIDERS: PCP Nurse Practitioner Family; Visit Provider Internal Medicine
DX: R55 Syncope and collapse (principal); E11.9 Type 2 diabetes mellitus without complications; Z79.85 Long-term (current) use of injectable non-insulin antidiabetic drugs; R29.6 Repeated falls; I10 Essential (primary) hypertension; I25.118 Atherosclerotic heart disease of native coronary artery with other forms of angina pectoris; Z79.899 Other long term (current) drug therapy; I25.2 Old myocardial infarction
CPT/HCPCS: 33285; C1764; J0736

== ENCOUNTER 2024-11-16 13:32 | Outpatient (CLI) | payer MEDICARE, SELFPAY ==
--- OUTSIDE RECORDS SUMMARY | 2024-11-16 13:40 | XMS_ITS | Clinical Summary ---
Author Organization [facility] Address [address] [place] [address] Care Team Providers Care Rn Palliative Care Name Role Phone Marito Mccoy MD Primary Care Provider [phone] Allergies Active Allergy Reactions Criticality Noted Date Comments Amitriptyline Mental Status Change High 07/28/2023 SUICIDAL Bee Venom Unknown - Low Severity 12/31/2022 Gabapentin Other (See Comments) 07/28/2023 Significant side effects Penicillins Hives 12/31/2022 Medications OXcarbazepine (TRILEPTAL) 300 MG tablet Take 2 tablets by mouth Take As Directed. 2 tabs in the morning, 2 tabs in the evening, 3 tabs at night 4 Active baclofen (LIORESAL) 10 MG tablet Take 1 tablet by mouth Every 12 (Twelve) Hours. 4 Active DULoxetine (CYMBALTA) 60 MG capsule 1 capsule. 4 Active irbesartan (AVAPRO) 75 MG tablet Take 1 tablet by mouth Daily. 4 Active metoprolol succinate XL (TOPROL-XL) 25 MG 24 hr tablet Take 1 tablet by mouth Daily. 4 Active atorvastatin (LIPITOR) 80 MG tablet Take 1 tablet by mouth every night at bedtime. 4 Active clopidogrel (PLAVIX) 75 MG tablet Take 1 tablet by mouth Daily. 4 Active rOPINIRole (REQUIP) 1 MG tablet 1 tablet. 4 Active Ozempic, 2 MG/DOSE, 8 MG/3ML solution pen-injector Inject 2 mg under the skin into the appropriate area as directed 1 (One) Time Per Week. Active aspirin 81 MG EC tablet Take 1 tablet by mouth Daily. Active Active Problems No known active problems Family History Medical History Relation Name Comments Hearing loss Brother Bello hu Cancer Daughter 1 Tia vargas Thyroid disease Daughter 2 Julia schwartz Hoshimoto Cancer Maternal Aunt Nicki Cancer Maternal Grandfather Gurmeet steward Cancer Maternal Grandmother Cornelius diana Arthritis Mother Nicole canas mom Hearing loss Mother Nicole canas mom Heart disease Mother Nicole canas mom Hearing loss Sister 1 May glaze Hearing loss Sister 2 Sheri Wallace Relation Name Status Comments Brother Bello hu Daughter 1 Tia vargas Daughter 2 Julia schwartz Maternal Aunt Nicki Maternal Grandfather Gurmeet steward Maternal Grandmother Cornelius diana Mother Nicole canas mom Sister 1 May glaze Sister 2 Sheri Wallace Social History Tobacco Use Types Packs/Day Years Used Date Smoking Tobacco: Former Cigarettes 1 28 0 02/17/1989 - 02/17/2017 Passive Smoke Exposure: Past Smokeless Tobacco: Never Alcohol Use Standard Drinks/Week Comments Not Currently 0 (1 standard drink = 0.6 oz pur e alcohol) Maybe 2 drinks a year Abuse Screen Answer Date Recorded Unsafe at Home or Work/School Not on file Feels Threatened by Someone? Not on file Does Anyone Keep You from Co ntacting Others or Doint Things Outside the Home? Not on file 07/03/2023 Physical Sign of Abuse Present Not on file 0 07/03/2023 Housing Stability Answer Date Recorded Current Living Arrangements Not on file 06/17 Potentially Unsafe Housing Conditions Not on felisha e 07/03/2023 Family and Community Support Answer Nazario e Recorded Help with Day-to-Day Activities Not on file 07/03/2023 Lonely or Isolated Not on file 07/03/2023 Employment Answer Date Recorded Do you want help finding or keeping work or a gala b? Not on file 07/03/2023 Disabilities Answer Date Recorded Concentrating, Remembering, or Making Decisions Difficulty Not on file 07/03/2023 Doing Errands Independently Difficulty Not on fi le 07/03/2023 Education Answer Date Recorded Help with school or training? Not on file Preferred Language Not on file 07/03/2023 Comments Unknown Sex and Gender Information Value Date Recorded Sex Assigned at Not on file Legal Sex Female 3:46 PM EDT Gender Identity Not on file Sexual Orientation Not on file Last Filed Vital Signs Vital Sign Reading Time Taken Comments Blood Pressure - - Pulse - - Temperature 36.3 C (97.3 F) 08/19/2023 1:54 PM EDT Respiratory Rate - - Oxygen Saturation - - Inhaled Oxygen Concentration - - Weight 87.1 kg (192 lb) 08/19/2023 1:54 PM EDT Height 172.7 cm (5' 8 ) 08/19/2023 1:54 PM EDT Body Mass Index 29.19 08/19/2023 1:54 PM EDT Plan of Treatment Health Maintenance Due Date Last Done Comments Annual Gynecologic Pelvic and Breast Exam 1962 TDAP/TD VACCINES (1 - Tdap) 1981 MAMMOGRAM 2002 COLOGUARD 11/10/2007 COLON CANCER SCREENING 5 YEAR SIGMOIDOSCOPY 11/10/2007 COLONOSCOPY 11/10/2007 COLORECTAL CANCER SCREENING 11/10/2007 CT COLONOGRAPHY 11/10/2007 FECAL OCCULT BLOOD TEST 11/10/2007 FIT Testing (1 year) 11/10/2007 Pneumococcal Vaccine 50+ (1 of 1 - PCV) 2012 ZOSTER VACCINE (1 of 2) 2012 ANNUAL WELLNESS VISIT 07/28/2023 HEPATITIS C SCREENING 07/28/2023 INFLUENZA VACCINE 09/17/2024 Insurance [facility] MEDICARE ADVANTAGE PPO Care Teams Rn Palliative Care Relationship Specialty Start Date End Date Marito Mccoy MD [address] [place] [address] PCP - General Emergency Medicine 07/10/23
--- OUTSIDE RECORDS SUMMARY | 2024-11-16 13:40 | XMS_ITS | Clinical Summary ---
Author Organization [facility] Address [address] [place] [address] Care Team Providers Care Inspector Returned Materials Name Role Phone Unavailable Primary Care Provider Unavailabl e Social History Tobacco Use Types Packs/Day Years Used Date Smoking Tobacco: Never Assessed Comments Unknown Sex and Gender Information Value Date Recorded Sex Assigned at Female 04/24/2022 4:37 PM EST Legal Sex Female 3:50 PM EST Gender Identity Female 04/24/2022 4:37 PM EST Sexual Orientation Straight 04/24/2022 4: 37 PM EST Plan of Treatment Health Maintenance Due Date Last Done Comments [facility]-Depression Screening 1962 [facility]-HIV Screening 1962 [facility]-Hepatitis C Screening 1962 [facility]-Medicare Annual Wellness (AWV) 1962 [facility]-/Child/Adol SDOH Screenings 1962 [facility]- SDOH Screenings 1980 [facility]-Adult SDOH Screenings 1980 [facility]-DTaP,Tdap,and Td Vaccine s (1 - Tdap) 1981 [facility]-Pap Smear 11/10/1983 [facility]-Cervical Cancer Screening 1992 [facility]-HPV/Cotest 1992 CT Colonography 11/10/2007 Colonoscopy 11/10/2007 FIT-DNA 11/10/2007 FIT 11/10/2007 FOBT 11/10/2007 Sigmoidoscopy 11/10/2007 [facility]-Colorectal Cancer Screening 11/10/2007 [facility]-Breast Cancer Screening 2012 [facility]-Pneumococcal Vaccine: 50 + Years (1 of 1 - PCV) 2012 [facility]-Zoster Vaccines (1 of 2) 2012 [id number] Vaccine (1 - 20 24-25 season) 2024 [facility]-Influenza Vaccine (#1) 2024 [facility]-RSV Vaccine: 60+ Years o r (1 - 1-dose 75+ series) 2037 HPV Vaccines Aged Out No longer eligi ble based on patient's age to complete this topic [facility]-HIB Vaccines Aged Out No longer e ligible based on patient's age to complete this topic [facility]-Hepatitis A Vaccines Aged Out No longer eligible based on patient's age to complete this topic [facility]-IPV Vaccines Aged Out No longer e ligible based on patient's age to complete this topic [facility]-Rotavirus Vaccines Aged Out No lo nger eligible based on patient's age to complete this topic Insurance [employer]ICA[employer]
--- OUTSIDE RECORDS SUMMARY | 2024-11-16 13:40 | XMS_ITS | Data Portability ---
Author Organization [facility] & [place] ADMIN Address [address] [place] [address] Care Team Providers Care Garnett Feeder Name Role Phone YUE JONES Primary Care Provider Assessment No assessment recorded. Plan of Treatment Reminders Order Date Submit Date Provider Last Modified By Organization Details Last Modified Time Details Appointments None recorded. Lab bun (blood urea nitrogen) , serum or plasma [address] (Centralized Scheduling), [address] [place], [address], 4 11:02:03 creatinin e, serum or plasma [address] (Centralized Scheduling), [address] [place], [address], 4 11:02:04 bun (blood urea nitrogen) , serum or plasma 2022 023 ATHENAFAX [facility] (Registration) , [address] [place], [address], 3 12:20:44 creatinin e, serum or plasma [address] (Registration) , [address] [place], [address], 3 14:22:36 oxcarbaze pine, serum 2022 023 [email or web address] [facility] (Registration) , [address] , [place], [address], 3 08:33:21 Referral neurologi guevara surgeon referral [address] [facility] Neurosurgery, [address], [address], [place], [address], 4 14:29:45 Procedures None recorded. Surgeries None recorded. Imaging CT, head, w/wo contrast 2023 024 [facility] (Centralized Scheduling), [address], [place], [address], 4 07:39:36 MRI, brain, w/wo contrast 2022 023 [facility] (Centralized Scheduling), [address], [place], [address], 3 12:20:44 Medication Orders baclofen 10 mg tablet 2022 023 [facility], [address] [place] [address], [id number], 4 13:53:05 Patient TargetsNo targets recorded. Patient InstructionsNo instructions recorded. Reason for Referral Neurological Surgeon Referra l for Left trigeminal neuralgia Referring Physician: Reshma Gómez, Neurology, Encounter Date: 07/01/2023 Results Created Date Observation Date Name Description Value Unit Range Abnormal Flag Note LastModifiedBy Organization Detail LastModifiedTime 12/04/1912/03/2022 BUN BUN 21 mg/dL 7-18 high Not Available [facility] (C[facility]) [address] , [place], [address], 12/03/2022 13:28:00 12/04/19 23 12/03/2022 CREAT ININE creatinine 0.7 mg/dL 0.6-1. 3 Not Available [facility] ([facility]) [address], [place], [address], 12/03/2022 13:28:01 12/04/19 23 12/03/2022 CREAT ININE glomerular filtration rate >60 mlper min 60- Not Available [facility] ([facility]) [address], [place], [address], 12/03/2022 13:28:01 12/04/19 23 12/06/2022 OXCAR BAZEP INE (TRIL EPTAL ) oxcarbazepin e (trileptal), ser 31 ug/mL 10-35 This test was daniele cates and its perfo rmanc e alejo cteri stics deter mined by [facility]. It has not been clear ed or appro shruthi by the Food and Drug Admin istra tion. Detec tion Limit = 1 Perfo rmed at: BN - [facility] tacho savage [address] [facility] [place] [address] Lab Direc tor: Stephanie orr MD, Phone : [phone] Not Available [facility] ([facility]) [address], [place], [address], 12/06/2022 06:13:18 07/21/19 24 07/21/2023 BUN BUN 19 mg/dL 7-18 high Not Available [facility] ([facility]) [address], [place], [address], 07/21/2023 09:32:26 07/21/19 24 07/21/2023 CREAT ININE creatinine 0.7 mg/dL 0.6-1. 3 Not Available [facility] ([facility]) [address], [place], [address], 07/21/2023 09:32:27 07/21/19 24 07/21/2023 CREAT ININE glomerular filtration rate >60 mlper min 60- Not Available [facility] ([facility]) [address], [place], [address], 07/21/2023 09:32:27 12/31/19 23 12/29/2022 MRI brain w/w/O [facility] [address] [place] [address] Phone: Fax: Name: LEYDA OSMAN Exam Date: 2022 : 963 Age 62 Gender : F Access ion: [id number] Physic adali: MONIK GÓMEZ Facili ty: [facility] Facili ty HSV: Outpat ient Exam: MRI BRAIN W/W/O [facility]AL REPORT CLINIC AL HISTOR Y: Trigem inal Bilate ral facial pain Gamma knife proced ure 3 years ago 20ccs multih ance FINDIN GS: Multip lanar MR imagin g of the orbits was perfor med withou t and with contra st. The globes are intact withou t eviden ce of hemorr tone or mass. The extrao cular muscle s are intact . The optic nerves have an unrema rkable appear ance. There is no eviden ce of intrao rbital mass or abnorm al fluid collec tion. There is mild mucope rioste al thicke mikael of the left maxill adilson sinus. 7th and 8th nerve root comple xes are intact . No abnorm al contra st enhanc ement is identi fied. The optic chiasm has an unrema rkable appear ance. IMPRES PRIYANKA: No mass or abnorm al contra st enhanc ement Review ed, Interp reted and Dictat ed by Gavino bartholomew MD Transc ribed by Lakshmi florian and Electr onical ly Signed by Gavino bartholomew MD on 2022 08:39: 19 [facility] [place] Dictat ed By: GAVINO JALLOH Transc ribed By: Transc ribed On: 2022 8:39 AM Electr onical ly signed by: GAVINO JALLOH 2022 Thank you for referr LEYDA Ryan to [facility]. Legall y authen ticate d by BIBIANA Farr 2022-02 08:39: 19 CC'ed Logic: Orderi ng Provid er: RICO Villa Attend ing Provid er: RICO Villa Admitt ing Provid er: RICO Villa [facility] Therapy [address] [facility], [place], [address], 12/30/2022 13:50:51 07/21/19 24 07/21/2023 CT brain w/w/O [facility] [address] [place] [address] Phone: Fax: Name: LEYDA OSMAN Exam Date: 07/21/19 : 963 Age 62 years Gender : F Access ion: [id number] Physic adali: JAELYN GÓMEZADOLFO Villa Facili ty: [facility] Fac[place] ty HSV: Outpat ient Exam: CT BRAIN W/W/O CT HEAD withou t and with IV contra st HISTOR Y: Dizzin ess COMPAR JESSICA: MRI from er 2022 TECHNI QUE: Pre-an d post IV contra sted exam with solorzano l reform atted images . FINDIN GS: There is no eviden ce of acute hemorr tone, mass effect or midlin e shift. No extra- axial abnorm ality is noted. Ventri cles and cister ns appear normal . No abnorm al enhanc ing lesion s. The visual ized sinuse s, orbits and petrou s tempor al bones appear unrema rkable . Defect seen involv ing the left occipi satish bone, correl ate with patien t's surgic al histor y. IMPRES PRIYANKA: No eviden ce of acute hemorr tone, mass effect , or midlin e shift. Dictat ed By: SAPPHIRE SALAZAR Transc ribed By: Sapphire Salazar Transc ribed On: 07/21/19 24 10:42 AM Electr onical ly signed by: SAPPHIRE SALAZAR 07/21/19 Thank you for referr LEYDA Ryan to [facility]. Legall y authen ticate d by POPE SAPPHIRE Correa 4-0 07-20 10:42: 04 CC'ed Logic: Orderi ng Provid er: RICO Villa Attend ing Provid er: RICO Villa Referr ing Provid er: RICO Villa Admitt ing Provid er: RICO CHRISTYADOLFO Villa [id number] [facility] [address] [facility], [place], [address], 07/21/2023 14:05:27 Result Notes None recorded. 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 Procedures Surgical History Date Name Laterality Status Provider Name and Address Organization Details Recorded Time placement of stent in cardiac conduit completed Ximena Joannaa [place] [facility] [place] 12/03/2022 11:27:52 ligation of fallopian tube completed Ximena Saritha [place] [facility] [place] 12/03/2022 11:28:17 Back Surgery completed Ximena Melara [place] [facility] [place] 12/03/2022 11:29:05 gamma ray therapy completed Reshma Gómez DO [address], [place], [address], [facility] 12/03/2022 11:44:33 microvascular decompression surgery of cranial nerve completed Reshma Gómez DO [address], [place], [address], [facility] 12/03/2022 11:44:56 Imaging Results None recorded. Procedure Notes None recorded. Medical Equipment None Reported. Allergies Allergen ID Allergen Name Allergen Category Reaction Reaction Severity Criticality Documentation Date Start Date Code Code System Note Provider Name and Address Organization Details Recorded Time 30568 Product containin g penicilli n (product) medicatio n Not available Not available Not available 12/03/2022 [address] [facility] 3 11:25:32 28703 gabapenti n medicatio n Not available Not available Not available 12/03/2022 84851 RxNorm cause d cogni tive impai rment Reshma Gómez DO [address], [place], [address], [facility] & [place] 4 12:58:52 Medications Name Sig Start Date Stop Date Status Note LastModified by Organization Details LastModified Time furosemide 40 mg tablet TAKE ONE TABLET BY MOUTH EVERY DAY 12/03 completed Not Available Not Available Not Available metformin 500 mg tablet TAKE ONE TABLET BY MOUTH TWICE DAILY active Not Available Not Available No t Available atorvastati n 80 mg tablet TAKE ONE TABLET BY MOUTH EVERY DAY AT BEDTIME active Not Available Not Available No t Available nystatin 100,000 unit/mL oral suspension SWISH AND swallow 5 ML BY MOUTH FOUR TIMES DAILY FOR 10 DAYS --SHAKE WELL BEFORE USE-- 12/03 completed Not Available Not Available Not Available ropinirole 1 mg tablet TAKE ONE TABLET ONCE DAILY 1-3 hours BEFORE bedtime active Not Available Not Available No t Available hydrocodone 5 mg-acetamin ophen 325 mg tablet TAKE ONE TABLET BY MOUTH TWICE DAILY NEEDED FOR PAIN MAY CAUSE DROWSINES S 06/30 completed Not Available Not Available Not Available ondansetron HCl 4 mg tablet TAKE ONE TABLET BY MOUTH EVERY 8 HOURS NEEDED FOR NAUSEA AND VOMITING active Not Available Not Available No t Available prednisone 20 mg tablet TAKE ONE TABLET BY MOUTH TWICE DAILY FOR 3 DAYS, THEN TAKE ONE TABLET ONCE DAILY FOR 3 DAYS --TAKE WITH FOOD-- -- FINISH ALL MEDICINE -- 12/31 completed Not Available Not Available Not Available isosorbide mononitrate ER 30 mg tablet,exte nded release 24 hr TAKE ONE TABLET BY MOUTH EVERY DAY 12/03 completed Not Available Not Available Not Available clindamycin HCl 150 mg capsule TAKE ONE CAPSULE BY MOUTH EVERY 8 HOURS FOR 7 DAYS 12/03 completed Not Available Not Available Not Available oxcarbazepi ne 300 mg tablet TAKE TWO TABLETS BY MOUTH THREE TIMES DAILY active Not Available Not Available No t Available phentermine 37.5 mg tablet Take one tablet by mouth daily (30 minutes before or 1-2 hour(s) after breakfast ). 06/30 completed Not Available Not Available Not Available clopidogrel 75 mg tablet TAKE ONE TABLET BY MOUTH EVERY DAY active Not Available Not Available No t Available aspirin 81 mg tablet,royer yed release TAKE ONE TABLET BY MOUTH EVERY DAY active Not Available Not Available No t Available tramadol 50 mg tablet TAKE 1 TABLET BY MOUTH TWICE DAILY 06/30 completed Not Available Not Available Not Available spironolact one 25 mg tablet TAKE 1/2 TABLET BY MOUTH EVERY DAY active Not Available Not Available No t Available famotidine 20 mg tablet TAKE ONE TABLET BY MOUTH EVERY TWELVE HOURS 12/03 completed Not Available Not Available Not Available baclofen 10 mg tablet TAKE ONE TABLET BY MOUTH TWICE DAILY active Not Available Not Available No t Available lidocaine 5 % topical patch APPLY 1 PATCH TOPICALLY TO THE AFFECTED AREA ONCE DAILY AND LEAVE IN PLACE FOR 12 HOURS, THEN REMOVE AND LEAVE OFF FOR 12 HOURS -- FOR EXTERNAL USE ONLY-- 12/03 completed Not Available Not Available Not Available oxcarbazepi ne 600 mg tablet TAKE ONE TABLET BY MOUTH THREE TIMES DAILY 12/03 completed Not Available Not Available Not Available irbesartan 75 mg tablet TAKE ONE TABLET BY MOUTH EVERY DAY active Not Available Not Available No t Available furosemide 20 mg tablet TAKE ONE TABLET BY MOUTH EVERY DAY active Not Available Not Available No t Available metoprolol succinate ER 25 mg tablet,exte nded release 24 hr TAKE ONE TABLET BY MOUTH EVERY DAY active Not Available Not Available No t Available lorazepam 1 mg tablet Take 1 tablet by oral route as needed. active Not Available Not Available No t Available methylpredn isolone 4 mg tablets in a dose pack TAKE ACCORDING TO PACKAGE INSTRUCTI ONS --TAKE WITH FOOD-- -- FINISH ALL MEDICINE -- 12/31 completed Not Available Not Available Not Available topiramate 50 mg tablet TAKE ONE TABLET BY MOUTH TWICE DAILY 12/31 completed Not Available Not Available Not Available duloxetine 60 mg capsule,del ayed release TAKE ONE CAPSULE BY MOUTH EVERY DAY FOR fibromyal tita active Not Available Not Available No t Available ranolazine ER 1,000 mg tablet,exte nded release,12 hr TAKE ONE TABLET BY MOUTH TWICE DAILY 12/03 completed Not Available Not Available Not Available diclofenac 1 % topical gel APPLY 2 grams TOPICALLY TO THE AFFECTED AREA(S) FOUR TIMES DAILY. -- FOR EXTERNAL USE ONLY-- 12/03 completed Not Available Not Available Not Available Ozempic 1 mg/dose (4 mg/3 mL) subcutaneou s pen injector INJECT 1MG SUBCUTANE OUSLY ONCE WEEKLY 06/30 completed Not Available Not Available Not Available ranolazine ER 1,000 mg granules,ex tended release in packet Take 1 packet twice a day by oral route. active Not Available Not Available No t Available Ozempic 2 mg/dose (8 mg/3 mL) subcutaneou s pen injector INJECT 2 MG SUBCUTANE OUSLY ONCE A WEEK active Not Available Not Available No t Available Ozempic 0.25 mg or 0.5 mg (2 mg/3 mL) subcutaneou s pen injector INJECT 0.5 MG SUBCUTANE OUSLY ONCE A WEEK 12/28 completed Not Available Not Available Not Available Clenpiq 10 mg-3.5 gram-12 gram/175 mL oral solution take 175 ML BY MOUTH DAILY FOR 2 doses; take THE first DOSE AT 5-9pm THE evening BEFORE THE colonosco py; THEN take THE second DOSE THE NEXT DAY approxima tely 5 hours BEFORE colonosco py 12/03 completed Not Available Not Available Not Available Vitals Date Recorded Body height Body mass index (BMI) Body weight Oxygen saturation Oxygen saturation in Arterial blood by Pulse oximetry Heart rate Systolic And Diastolic Provider Name and Address Organization Details Last Updated DateTime 4 172.72 cm 29.7 kg/m2 04297.6 7 g 98 % 98 % 76 /min 110/72 mm[Hg] Ximena KWON [facility] & [place] 4 12:44:34 Date Recorded Body height Body mass index (BMI) Body weight Oxygen saturation Oxygen saturation in Arterial blood by Pulse oximetry Heart rate Systolic And Diastolic Provider Name and Address Organization Details Last Updated DateTime 3 172.72 cm 29.9 kg/m2 96255.9 8 g 97 % 97 % 94 /min 104/58 mm[Hg] Ximena KWON [facility] & [place] 3 11:38:45 Date Recorded Body height Body mass index (BMI) Body weight Heart rate Oxygen saturation Oxygen saturation in Arterial blood by Pulse oximetry Systolic And Diastolic Provider Name and Address Organization Details Last Updated DateTime 3 172.72 cm 29.9 kg/m2 75072.2 6 g 70 /min 99 % 99 % 90/62 mm[Hg] Ximena KWON [facility] & [place] 3 13:18:21 Social History Question Answer Notes LastModified by [employer] ion Details LastModified Time Tobacco Smoking Status Former Smoker HAMLET Pressley [facility] & [place] 12/03/2022 11:51:46 Do You Have An Advance Directive? No Information not available 12/31/2022 Are You Blind Or Do You Have Difficulty Seeing? No Information not available 12/31/2022 What Is Your Level Of Caffeine Consumption? Moderate Information not available 12/31/2022 When Did You Quit Smoking? 1-5yearssinc elastcigaret te Information not available 12/31/2022 What Was The Date Of Your Most Recent Tobacco Screening? 12/27/2022 Information not available 12/31/2022 What Is Your Relationship Status? Lives Alone Information not available 12/31/2022 Are You Currently In School? No Some College Information not available 12/31/2022 Sex: Unknown Functional Status Question Answer Note LastModified by Organizat ion Details LastModified Time Do you use any illicit or recreational drugs? No Information not available 12/03/2022 What is your level of alcohol consumption? Occasional Information not available 12/03/2022 Are you currently employed? No disabled Information not available 12/31/2022 Mental Status None recorded. Family History Relationship Description Onset Age of this Age Resolved Age Notes LastModified by Organization Details LastModified Time Father No current problems or disability ldalla Not available 12/03 11:48:25 Mother No current problems or disability ldalla Not available 12/03 11:48:25 Medical History Condition Response Vision or Eye Problems Y Arthritis Y Ear or Hearing Problems Y Heart Attack ([place]) Y Heart Disease Y Spine Problems Y Fibromyalgia Y Neurological Problems Y Gynecological HistoryNo gynecological history recorded. Obstetrics History GPAL:G 0 P 0 0 0 0 Past Encounters Encounter ID Performer Location Encounter Start Date Encounter Closed Date Diagnosis/Indication Diagnosis SNOMED-CT Code Diagnosis ICD10 Code Diagnosis IMO Codes Diagnosis Note [id number] Reshma Gómez DO [facility] Neurology [address] [facility],[address] [place] [address] 12/03/2022 11:13:42 12/03/2022 12:15:53 Left trigeminal neuralgia 0019210878 0788611 G50.0 Chronic condition that his not well controlled .Will check oxcarbazep ine level to see if that medication could be adjusted any further. Would suggest she continue the baclofen and duloxetine . Will have her try to wean off the topiramate and see if this is providing any clinical benefits.S he will request her prior neurosurge ons records for me to reviewWill order MRI brain w/wo leland as she has not had any imaging in many years and now having progressin g symptoms. [id number] ReshmaDO Lizzy StahlARH [facility] Neurology [address] [facility],[address] [place] [address] 12/31/2022 13:05:24 12/31/2022 13:40:37 Left trigeminal neuralgia 5062619893 4827187 G50.0 Chronic condition that his not well controlled .She will continue with the current dose of oxcarbazep ine, baclofen and duloxetine . She has been able to stop the topiramate . She needs refills of just the baclofen today. Her records have not yet been received from her prior neurosurge on. We discussed referral to Neurosurge ry in [place] in the future if she should have worsening pain. She did do well for a period of time with gamma knife in the past. [id number] Reshma Rico, ZZ [facility] Neurology [address] [place] [address] 07/01/2023 12:40:39 07/01/2023 13:06:32 Left trigeminal neuralgia 4018410922 8130956 G50.0 Chronic condition that his not well controlled .She will continue with the current dose of oxcarbazep ine, baclofen and duloxetine . She does not need refills today.We discussed referral to Neurosurge ry in [place] for an opinion on other options as her pain is not well controlled with medication s. She did do well for a period of time with gamma knife in the past. Acquired d efect of skull 981776071 M95.2 She has noted an increase in size of the prior skull defect from her microvascu lar decompress ion. She also reports pain in that area. Will order CT head to evaluate for any potential sources for her symptoms. Health Concerns Section Related Observation LastModified by Organization Detai ls LastModified Time None Recorded Concern Status LastModified by Organization Details LastModified Time None Recorded Advance Directives Directive N: Payers Insurance Date Sequence Insurance Name Policy Number Policy Serrano Covered Member ID Serrano Member ID Guarantor Name 06/28/2023 1 [employer] (MEDICARE REPLACEMENT/A DVANTAGE - PPO) Olamide Osman [id number] Olamide Osman Notes Date Note Type Note Provider Name and Address Organization Details Recorded Time 12/03/2022 text/html 62 y/o right handed female here for neurologic consultation requested by Ezequiel Mathews regarding trigeminal neuralgia. Olamide is the primary historian for today's visit. Olamide reports having TGN initially on the left side but now also with symptoms on the right side. She has had two previous microvascular decompression surgeries on the left as well as gamma knife procedure on the left side to address her neuralgia. These procedures were in [place], [place] and [place]. She ended up moving due to the cold weather.She is currently prescribed baclofen, duloxetine, topiramate, and oxcarbazepine which are currently being managed by her PCP office. She was started on these by her neurosurgeon in [place]. She did feel that the medications were helping but then after she suffered a heart attack she has had increasing issues with flares of pain. Her airport ramp supervisor did decrease her dose of duloxetine and topiramate and she is not sure how much these medication are helping her currently. She was first diagnosed with Left TGN at least 8 years ago. It was on the left side and she was having zaps of pain in her left eye and cheek. She had dental issues ruled out. She had a MRI brain and she tells me there was evidence of a vessel compression the trigeminal nerve. She was referred to neurosurgery at that time. She recalls having additional testing and within two years had her first microvascular decompression on the left. This was unsuccessful in relieving her pain and she did develop infection that required an additional surgery to remove the microvascular patch.She then had a second attempt at microvascular decompression about a year later but again this was unsuccessful.She then went to a different neurosurgeon in [place], [place]. He did a gamma knife procedure which was successful. She had this done 3.5 years ago and she had significant pain relief up until she suffered a heart attack last summer.Her last MRI brain was done over 2 or 3 year ago. In the past she tried gabapentin but this has significant side effects. Amitriptyline made her suicidal. She has been on oxcarbazepine from almost the beginning of her diagnosis. Reshma Gómez, DO [address] [facility], [place], [address], [place] - [facility] - [place] [facility] [place] 12/03/2022 12:27:44 12/31/2022 text/html Olamide comes in today for follow up. She had a MRI brain w/wo leland since the last visit. This study was normal. Her oxcarbazepine level was at the upper limits of normal but I did give her the liberty to try to increase her dose by one pill to see if that was of any benefit for her neuralgia.The last visit I suggested she try to wean off topiramate as it was unclear this was providing any clinical benefits. She has stopped this and finds she has been stable even without this. She did add one additional pill of the oxcarbazepine. She tolerates this well but not really found her pain to be tremendously impacted by the current dose.she has been having dizzy spells and passing out for the last six months. 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 INITIAL VISIT: (12/03/22)62 y/o right handed female here for neurologic consultation requested by Ezequiel Mathews regarding trigeminal neuralgia. Olamide is the primary historian for today's visit. Olamide reports having TGN initially on the left side but now also with symptoms on the right side. She has had two previous microvascular decompression surgeries on the left as well as gamma knife procedure on the left side to address her neuralgia. These procedures were in [place], [place] and [place], [place]. She ended up moving due to the cold weather.She is currently prescribed baclofen, duloxetine, topiramate, and oxcarbazepine which are currently being managed by her PCP office. She was started on these by her neurosurgeon in [place]. She did feel that the medications were helping but then after she suffered a heart attack she has had increasing issues with flares of pain. Her airport ramp supervisor did decrease her dose of duloxetine and topiramate and she is not sure how much these medication are helping her currently. She was first diagnosed with Left TGN at least 8 years ago. It was on the left side and she was having zaps of pain in her left eye and cheek. She had dental issues ruled out. She had a MRI brain and she tells me there was evidence of a vessel compression the trigeminal nerve. She was referred to neurosurgery at that time. She recalls having additional testing and within two years had her first microvascular decompression on the left. This was unsuccessful in relieving her pain and she did develop infection that required an additional surgery to remove the microvascular patch.She then had a second attempt at microvascular decompression about a year later but again this was unsuccessful.She then went to a different neurosurgeon in [place], [place]. He did a gamma knife procedure which was successful. She had this done 3.5 years ago and she had significant pain relief up until she suffered a heart attack last summer.Her last MRI brain was done over 2 or 3 year ago. In the past she tried gabapentin but this has significant side effects. Amitriptyline made her suicidal. She has been on oxcarbazepine from almost the beginning of her diagnosis. Reshma Gómez, DO [address] [facility], [place], [id number], [place] - [facility] - [place] & [place] 12/31/2022 13:45:16 07/01/2023 text/html Olamide comes in today for a follow up. 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 She reports that she is having increased episodes of neuralgia flare ups. She is having almost daily zaps of pain in the left face and several times a week on the right. It can last only a minute or two at a time but is extremely intense.She is having poor quality of life due to her facial pain.I never received her neurosurgery records from [place]. She has had previous MVD and gamma knife procedures. She did find the gamma knife worked for several years at controlling her pain.She has noticed the hole where she had MVD 5 years ago seems to be getting bigger and deeper in the last few months. She feels as if she can feel a heartbeat in that area and it is uncomfortable. She has not injured herself in this area. PRIOR VISIT: (12/31/22)Olamide comes in today for follow up. She had a MRI brain w/wo [place] since the last visit. This study was normal. Her oxcarbazepine level was at the upper limits of normal but I did give her the liberty to try to increase her dose by one pill to see if that was of any benefit for her neuralgia.The last visit I suggested she try to wean off topiramate as it was unclear this was providing any clinical benefits. She has stopped this and finds she has been stable even without this. She did add one additional pill of the oxcarbazepine. She tolerates this well but not really found her pain to be tremendously impacted by the current dose.she has been having dizzy spells and passing out for the last six months. 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 INITIAL VISIT: (12/03/22)62 y/o right handed female here for neurologic consultation requested by Ezequiel Mathews regarding trigeminal neuralgia. Olamide is the primary historian for today's visit. Olamide reports having TGN initially on the left side but now also with symptoms on the right side. She has had two previous microvascular decompression surgeries on the left as well as gamma knife procedure on the left side to address her neuralgia. These procedures were in [place], [place] and [place], [place]. She ended up moving due to the cold weather.She is currently prescribed baclofen, duloxetine, topiramate, and oxcarbazepine which are currently being managed by her PCP office. She was started on these by her neurosurgeon in [place]. She did feel that the medications were helping but then after she suffered a heart attack she has had increasing issues with flares of pain. Her airport ramp supervisor did decrease her dose of duloxetine and topiramate and she is not sure how much these medication are helping her currently. She was first diagnosed with Left TGN at least 8 years ago. It was on the left side and she was having zaps of pain in her left eye and cheek. She had dental issues ruled out. She had a MRI brain and she tells me there was evidence of a vessel compression the trigeminal nerve. She was referred to neurosurgery at that time. She recalls having additional testing and within two years had her first microvascular decompression on the left. This was unsuccessful in relieving her pain and she did develop infection that required an additional surgery to remove the microvascular patch.She then had a second attempt at microvascular decompression about a year later but again this was unsuccessful.She then went to a different neurosurgeon in [place], [place]. He did a gamma knife procedure which was successful. She had this done 3.5 years ago and she had significant pain relief up until she suffered a heart attack last summer.Her last MRI brain was done over 2 or 3 year ago. In the past she tried gabapentin but this has significant side effects. Amitriptyline made her suicidal. She has been on oxcarbazepine from almost the beginning of her diagnosis. Reshma Gómez, DO [address] [facility], [place], [address], [facility] [place] - [place] 07/01/2023 13:14:05 OBGyn Episode No OBEpisode recorded.
--- OUTSIDE RECORDS SUMMARY | 2024-11-16 13:40 | XMS_ITS | Encounter Summary ---
Author Organization Healthcare Address [address] [place] [address] Care Team Providers Care Cloth Napping Supervisor Name Role Phone Unavailable Primary Care Provider Unavailabl e Encounter Details Date Type Department Care Team (Late st Contact Info) Description 03/28/2022 [facility] [address] [place] [address] Fernanda Colon, RESOURCE ROOM SPECIAL EDUCATION TEACHER [address] [place] [id number] Obstructive sleep apnea (adult) (pediatric) (Primary Dx) Social History Tobacco Use Types Packs/Day Years Used Date Smoking Tobacco: Never Assessed Comments Unknown Sex and Gender Information Value Date Recorded Sex Assigned at Female 04/24/2022 4:37 PM EST Legal Sex Female 3:50 PM EST Gender Identity Female 04/24/2022 4:37 PM EST Sexual Orientation Straight 04/24/2022 4: 37 PM EST documented as of this encounter Plan of Treatment Not on file documented as of this encounter Visit Diagnoses Diagnosis Obstructive sleep apnea (adult) (pediatric)- Primary documented in this encounter
--- NOTE | 2024-11-16 14:08 | XR_ITS ---
FINAL REPORT CLINICAL HISTORY: L Shoulder pain COMPARISON: None FINDINGS: LEFT SHOULDER Three views of the left shoulder were obtained. There is no acute fracture or dislocation. Visualized joint spaces are normally aligned. Osteopenia is noted. Soft tissues are unremarkable. IMPRESSION: No acute bony abnormality. Reviewed, Interpreted and Dictated by Gavino Yeboah MD Transcribed by Natty Alamo Authenticated and [facility]
[2024-11-16 14:58] LABS: Hematocrit 33.2 % (37.0-47.0); Hemoglobin 11.1 g/dL (12.2-16.2); Immature Granulocytes % 0 %; Mean Corpuscular HGB Conc 33.4 g/dL (31.8-35.4); Mean Corpuscular Hemoglobin 31.0 pg (27.0-31.2); Mean Corpuscular Volume 92.7 fl (81-99); Nucleated Red Blood Cells % 0 %; Platelet Count 213 K/mm3 (142-424); Red Blood Count 3.58 M/mm3 (4.20-5.40); Red Cell Distribution Width-SD 42.7 fL; White Blood Count 4.2 K/mm3 (4.8-10.8)
[2024-11-16 15:22] LABS: Alanine Aminotransferase 25 U/L (12-78); Albumin Level 3.6 g/dl (3.5-5.0); Albumin/Globulin Ratio 1.6 (1.1-1.8); Alkaline Phosphatase 107 U/L (38-126); Anion Gap 11.2 mEq/L (5-15); Aspartate Amino Transferase 30 U/L (14-36); Bilirubin,Total 0.6 mg/dl (0.2-1.3); Blood Urea Nitrogen 12 mg/dl (7-17); Calcium 8.7 mg/dl (8.4-10.2); Carbon Dioxide 29 mmol/L (22.0-30.0); Chloride 104 mmol/L (98-107); Cholesterol 126 mg/dl (140-200); Creatinine,Serum 0.60 mg/dl (0.52-1.04); Estimated Glomerular Filt Rate 101 ml/min (>60); GFR (African American) 123 ML/MIN (>60); Globulin 2.2 g/dL (1.3-3.2); Glucose 96 mg/dl (74-100); HDL Cholesterol 76 mg/dl (40-60); Potassium 4.2 mmoL/L (3.5-5.1); Sodium 140 mmol/L (136-145); Total Protein,Serum 5.8 g/dl (6.3-8.2); Triglycerides 37 mg/dl (30-150)
[2024-11-16 15:52] LABS: Thyroid Stimulating Hormone 1.13 uIU/mL (0.465-4.68)
[2024-11-16 16:13] LABS: Hemoglobin A1C 5.0 % (4.0-6.0)
== END 2024-11-16 23:59 | disposition home or self-care (01) ==
PROVIDERS: PCP Nurse Practitioner Family; Visit Provider Nurse Practitioner Family
DX: M25.512 Pain in left shoulder (principal); I10 Essential (primary) hypertension; E66.3 Overweight; E11.9 Type 2 diabetes mellitus without complications; E78.5 Hyperlipidemia, unspecified; G47.33 Obstructive sleep apnea (adult) (pediatric); E03.9 Hypothyroidism, unspecified; I25.10 Atherosclerotic heart disease of native coronary artery without angina pectoris; R55 Syncope and collapse; Z68.35 Body mass index [BMI] 35.0-35.9, adult
CPT/HCPCS: 36415; 73030; 80053; 80061; 82043; 82570; 83036; 84443; 85025

== ENCOUNTER 2024-12-09 07:26 | Day surgery (SDC) | payer MEDICARE, SELFPAY ==
[2024-12-09 07:29] VITALS: BMI 28.8
[2024-12-09] MEDS: LIDOCAINE 2% W/EPI 1:100,000 20ML VIAL 20 ML SUBCUT (07:44)
[2024-12-09] MEDS: CLINDAMYCIN PHOSPHATE 600 MG in 0.9 % SODIUM CHLORIDE 100 ML 100 MG IV (07:46)
[2024-12-09 07:51] VITALS: BP 132/70; PULSE 65; RESP 18; TEMP 37; O2SAT 99
[2024-12-09 07:57] VITALS: PULSE 65
[2024-12-09] MEDS: ONDANSETRON 4MG/2ML VIAL 4 MG IV (08:27)
[2024-12-09 08:29] VITALS: BP 112/53; PULSE 76; PULSE 83; RESP 18; TEMP 36.9; O2SAT 99
--- NOTE | 2024-12-09 08:38 | EXP.LOOP ---
[facility] Loop Recorder Date: 12/09/24 Time: 08:38 Procedure Performed:: Loop recorder removal Indication:: Patient request Technique:: Patient was brought to the cardiac Contact And Service Clerks Supervisor as an outpatient. After informed consent was obtained, the area over the loop recorder was anesthetized with 1% lidocaine and a scalpel was used to dissect down to the device. Forceps were used to remove the device. A staple was placed to approximate the wound edges and incision was closed in a sterile fashion using a pressure dressing with Tegaderm. Patient tolerated the procedure without complications. Impression:: Successful removal of loop recorder Serial Number:: Not indicated Plan:: Routine postop care
[2024-12-09 08:50] VITALS: BP 150/69; PULSE 72; RESP 18; O2SAT 99
== END 2024-12-09 09:05 | disposition home or self-care (01) ==
PROVIDERS: PCP Nurse Practitioner Family; Visit Provider Internal Medicine
DX: Z45.09 Encounter for adjustment and management of other cardiac device (principal); R55 Syncope and collapse; I25.118 Atherosclerotic heart disease of native coronary artery with other forms of angina pectoris; R06.09 Other forms of dyspnea; E11.9 Type 2 diabetes mellitus without complications; I10 Essential (primary) hypertension; E78.5 Hyperlipidemia, unspecified; G47.33 Obstructive sleep apnea (adult) (pediatric); I25.2 Old myocardial infarction; H91.93 Unspecified hearing loss, bilateral; Z95.5 Presence of coronary angioplasty implant and graft; Z79.02 Long term (current) use of antithrombotics/antiplatelets; Z79.82 Long term (current) use of aspirin; Z79.85 Long-term (current) use of injectable non-insulin antidiabetic drugs; Z79.899 Other long term (current) drug therapy; Z88.0 Allergy status to penicillin
CPT/HCPCS: 33286; J0736; J2004; J2405